=== PATIENT | female | born 1960 | race Caucasian/White ===

== ENCOUNTER 2018-03-27 02:56 | Inpatient (IN) ==
[2018-03-27] MEDS ORDERED: Acetaminophen 325 MG Tablet PO PRN (03:18)
[2018-03-27] MEDS ORDERED: Bisacodyl 10 MG Supp RECTAL PRN (03:18)
--- NOTE | 2018-03-27 03:41 | ED ---
HPI General Chief complaint: Epistaxis Stated complaint: Nose Bleed Time Seen by Provider: 03/27/18 03:01 Source: patient, EMS, RN notes reviewed and old records reviewed Mode of arrival: EMS History of Present Illness HPI narrative: 58yF transferred from [facility] for epistaxis. The patient takes aspirin/ plavix for CAD s/p stents, states that yesterday evening she began to have copious brisk epistaxis which did not resolve with pressure. She went to [place] ED where she had numerous clots evacuated/ suctioned from her anterior nares and posterior oropharynx. Packing was placed (it appears that she has anterior packing in the right nare and anterior/posterior packing in the left nare). ENT was consulted in [place], but the patient was transferred to our institution for IR and ICU availability. The patient currently offers no complaints. Related Data Home Medications Medication Instructions Recorded Confirmed aspirin 81 mg PO DAILY 03/27/18 03/27/18 clopidogrel 75 mg PO DAILY 03/27/18 03/27/18 cyclobenzaprine 10 mg PO HS 03/27/18 03/27/18 gabapentin 1,200 mg PO HS 03/27/18 03/27/18 linaclotide [Linzess] 290 mcg PO DAILY 03/27/18 03/27/18 lisinopril 10 mg PO DAILY 03/27/18 03/27/18 metoprolol tartrate 50 mg PO BID 03/27/18 03/27/18 sertraline 200 mg PO DAILY 03/27/18 03/27/18 Allergies Allergy/AdvReac Type Severity Reaction Status Date / Time codeine Allergy Unknown Rash Unverified 03/27/18 03:00 Sulfa (Sulfonamide Allergy Unknown Rash Unverified 03/27/18 03:00 Antibiotics) sulfamethoxazole Allergy Unknown Rash Verified 03/27/18 03:00 [From Bactrim] trimethoprim [From Bactrim] Allergy Unknown Rash Verified 03/27/18 03:00 statins Allergy Unknown Rash Uncoded 03/27/18 03:00 Review of Systems ROS: all other systems reviewed are negative [facility] Medical History Medical History Breast cancer (Acute) Constipation (Acute) Endometriosis (Acute) Fibromyalgia (Acute) GERD (gastroesophageal reflux disease) (Acute) H/O colon cancer, stage I (Acute) HTN (hypertension) (Acute) Surgical History Surgical History H/O left mastectomy (Acute) H/O mastectomy (Acute) Social History Social History Substance History: Active Abuse Second Hand Smoke Exposure: Yes Smoking Status: Current every day smoker Tobacco Type: Cigarettes How Often Do You Have a Drink Containing Alcohol: Never Recent Travel in [facility] within the Last 8 Weeks: No Recent Out of Country Travel within the Last 8 Weeks: No Substance Abuse Detail Marijuana: Substance Use Status: Early Remission Reason for Use: Feels Good Immunization History Tetanus Immunization: Unsure Exam Const General: healthy appearing and no acute distress HENMT Other: Bilateral nasal packing in place- right appears to have anterior packing only, left nare has dual-lumen pack present which is partially removed from nare with both balloons inflated (? A-P pack placed anteriorly) Airway patent Resp Auscultation: clear to auscultation bilaterally Other: Speaking in complete sentences, no respiratory distress Cardio Rate: regular rate Rhythm: regular rhythm GI Palpation: soft and nontender Skin General: no pallor Neuro General: alert, awake and no focal motor deficits Course Initial Documented Vital Signs Temperature 97.9 F 03/27/18 03:00 Pulse Rate 90 03/27/18 03:00 Respiratory Rate 16 03/27/18 03:00 Blood Pressure 165/98 H 03/27/18 03:00 Pulse Oximetry 97 03/27/18 03:00 Last Documented Vital Signs Temperature 97.9 F 03/27/18 03:00 Pulse Rate 90 03/27/18 03:00 Respiratory Rate 16 03/27/18 03:00 Blood Pressure 165/98 H 03/27/18 03:00 Pulse Oximetry 97 03/27/18 03:00 Medical Decision Making [facility] Narrative Medical decision making narrative: Assessment: 58yF presenting with epistaxis Plan: Patient accepted prior to transfer by Dr. Lynch, case discussed with her. Patient appropriate for med-surg level of care. Patient already had labs performed prior to transfer, Hg 11.5, AM labs Medical Screen Exam Complete: Yes Emergency Medical Condition: Yes Differential Diagnosis Differential Diagnosis: Differential diagnosis includes, but is not limited to: anterior/ posterior epistaxis, medication induced platelet dysfunction Discharge Plan Discharge Disposition Patient Disposition: ED Admit(ED Internal Use Only) Discharge Condition Condition: Good Discharge Details Diagnosis: Severe epistaxis, Platelet dysfunction due to drugs Physicians Team ED Provider: Mary Lou Bernstein Primary Care Provider: Primary Care Isabel Hartley Attending Provider: Judy Lynch Status ED Status: Admitted Patient
--- NOTE | 2018-03-27 03:58 | P.HPIM ---
History of Present Illness Primary Care Physician: No Primary Care Physician History of Present Illness: This is a 58-year-old female with a PMH of HTN, CAD s/p Stent and Tobacco Abuse who was transferred from [facility] for eval w/ Dr. Yarbrough for epistaxis. Pt states she has h/o CAD w/ stent placement in August 2017, has been on ASA and Plavix since that time. Today developed acute onset of bilateral epistaxis, EMS called and symptoms subsided, however had recurrent epistaxis several hours later and presented to [facility]. S/p nasal packing bilaterally w/ posterior clot. Dr. Yarbrough consulted and accepted pt in transfer. Records/labs from reviewed, Hgb 11.1, Platelets 186, INR 1.1. BP 165/98, HR 90, O2 sat 97% on RA , Afebrile. - Diagnosis (1) Epistaxis (2) HTN (hypertension) (3) Tobacco abuse Inpatient Certification: I certify that the inpatient services were ordered in accordance with Medicare regulations governing the order. This includes certification that hospital inpatient services are reasonable and necessary and in the case of services not specified as inpatient-only under 42 CFR 419.22(n), that they are appropriately provided as inpatient services in accordance to with the 2-midnight benchmark under 43 CFR 412.3(e) Estimated Total Length of Stay (Days): 2 Plans for Post Hospital Care: Not yet determined Review of Systems PAST FAMILY HISTORY: Reviewed. No h/o DM or CAD All other systems reviewed negative except as stated in HPI PMFSH - History History Provided By: Patient - Medical History Medical History: Medical History (Last Reviewed 03/27/18 @ 03:48 by Mary Lou Bernstein DO) Breast cancer Constipation Endometriosis Fibromyalgia GERD (gastroesophageal reflux disease) H/O colon cancer, stage I HTN (hypertension) - Surgical History Surgical History: Surgical History (Last Reviewed 03/27/18 @ 03:48 by Mary Lou Bernstein DO) H/O left mastectomy H/O mastectomy - Tobacco History Second Hand Smoke Exposure: Yes Tobacco Use In Past 30 Days: Yes Smoking Status: Current every day smoker Tobacco Type: Cigarettes - Alcohol History How Often Do You Have a Drink Containing Alcohol: Never - Substance Use History Substance History: Active Abuse - Substance Use Type Marijuana Status: Early Remission Reason for Use: Feels Good - Travel History Recent Travel in the [facility] [place] Within the Last 8 Weeks: No Recent Travel Out of the Country Within the Last 8 Weeks: No - Immunization History Tetanus Immunization: Unsure Medications and Allergies Active Medications: Active Medications Acetaminophen (Tylenol) 650 mg PO Q4H PRN PRN Reason: Temp > 100.4 Al Hydroxide/Mg Hydroxide (Milk Of Magnesia Liq) 30 ml PO Q12H PRN PRN Reason: Mild Constipation Bisacodyl (Dulcolax Supp) 10 mg RECTAL DAILY PRN PRN Reason: SEVERE CONSITIPATION Lactulose (Lactulose Liq) 30 ml PO DAILY PRN PRN Reason: SEVERE CONSITIPATION Ondansetron HCl (Zofran Inj) 4 mg IV.PUSH Q6H PRN PRN Reason: NAUSEA OR VOMITING Senna/Docusate Sodium (Davida-Colace) 1 tab PO BID [facility] Sennosides (Senokot) 17.2 mg PO Q12H PRN PRN Reason: Moderate Constipation Sodium Chloride (Ns Flush) 2 ml IV.FLUSH PRN PRN PRN Reason: FLUSH AFTER USING IV ACCESS Sodium Chloride (Ns Flush) 2 ml IV.FLUSH BID [facility] Allergies Allergy/AdvReac Type Severity Reaction Status Date / Time codeine Allergy Unknown Rash Unverified 03/27/18 03:00 Sulfa (Sulfonamide Allergy Unknown Rash Unverified 03/27/18 03:00 Antibiotics) sulfamethoxazole Allergy Unknown Rash Verified 03/27/18 03:00 [From Bactrim] trimethoprim [From Bactrim] Allergy Unknown Rash Verified 03/27/18 03:00 statins Allergy Unknown Rash Uncoded 03/27/18 03:00 Home Medications Medication Instructions Recorded Confirmed Type aspirin 81 mg PO DAILY 03/27/18 03/27/18 History clopidogrel 75 mg PO DAILY 03/27/18 03/27/18 History cyclobenzaprine 10 mg PO HS 03/27/18 03/27/18 History gabapentin 1,200 mg PO HS 03/27/18 03/27/18 History linaclotide [Linzess] 290 mcg PO DAILY 03/27/18 03/27/18 History lisinopril 10 mg PO DAILY 03/27/18 03/27/18 History metoprolol tartrate 50 mg PO BID 03/27/18 03/27/18 History sertraline 200 mg PO DAILY 03/27/18 03/27/18 History Exam Vital signs: Vital Signs 03/27/18 03:00 Temperature 97.9 F Pulse Rate 90 Respiratory Rate 16 Blood Pressure 165/98 H Pulse Oximetry 97 Intake & Output 03/26/18 03/26/18 03/27/18 06:59 18:59 06:59 Weight 61.235 kg Narrative: PE: GENERAL: Pleasant middle-aged white female in no acute distress, uncomfortable from nasal packing. SKIN: Focused skin assessment warm and dry. HEENT: PERRLA, EOMI. No scleral icterus or conjunctival pallor. No lid lag or facial droop. Bilateral nasal packing CARDIOVASCULAR: Regular rate and rhythm. No obvious murmurs to auscultation. No chest tenderness to palpation. RESPIRATORY: No obvious rhonchi or wheezing. Clear to auscultation. Breath sounds equal bilaterally. GASTROINTESTINAL: Abdomen soft, non-tender, nondistended. BS normal. MUSCULOSKELETAL: Extremities without clubbing, cyanosis, or edema. No obvious deformities. NEUROLOGICAL: Awake, alert and oriented x4. No focal neurologic deficits. Moving both upper and lower extremities spontaneously. PSYCHIATRIC: Appropriate mood and affect. Insight and judgment normal. Caprini VTE Risk Assessment Caprini VTE Risk Assessment: No/Low Risk (score <= 1) VTE Pharmacological Exception Reason: Active bleeding Caprini Risk Assessment Model: Point Value = 1 Point Value = 2 Point Value = 3 Point Value = 5 Age 41-60 Minor surgery BMI > 25 kg/m2 Swollen legs Varicose veins or History of unexplained or recurrent spontaneous Oral contraceptives or hormone replacement Sepsis (< 1 month) Serious lung disease, including pneumonia (< 1 month) Abnormal pulmonary function Acute myocardial infarction Congestive heart failure (< 1 month) History of inflammatory bowel disease Medical patient at bed rest Age 61-74 Arthroscopic surgery Major open surgery (> 45 min) Laparoscopic surgery (> 45 min) Malignancy Confined to bed (> 72 hours) Immobilizing plaster cast Central venous access Age >= 75 History of VTE Family history of VTE Factor V Leiden Prothrombin [id number] Lupus anticoagulant Anticardiolipin antibodies Elevated serum homocysteine Heparin-induced thrombocytopenia Other congenital or acquired thrombophilia Stroke (< 1 month) Elective arthroplasty Hip, pelvis, or leg fracture Acute spinal cord injury (< 1 month) Prophylaxis Regimen: Total Risk Factor Score Risk Level Prophylaxis Regimen 0-1 Low Early ambulation 2 Moderate Order ONE of the following: *Sequential Compression Device (SCD) *Heparin 5000 units SQ BID 3-4 Higher Order ONE of the following medications: *Heparin 5000 units SQ TID *Enoxaparin/Lovenox 40 mg SQ daily (WT < 150 kg, CrCl > 30 mL/min) *Enoxaparin/Lovenox 30 mg SQ daily (WT < 150 kg, CrCl > 10-29 mL/min) *Enoxaparin/Lovenox 30 mg SQ BID (WT < 150 kg, CrCl > 30 mL/min) AND/OR *Sequential Compression Device (SCD) 5 or more Highest Order ONE of the following medications: *Heparin 5000 units SQ TID (Preferred with Epidurals) *Enoxaparin/Lovenox 40 mg SQ daily (WT < 150 kg, CrCl > 30 mL/min) *Enoxaparin/Lovenox 30 mg SQ daily (WT < 150 kg, CrCl > 10-29 mL/min) *Enoxaparin/Lovenox 30 mg SQ BID (WT < 150 kg, CrCl > 30 mL/min) AND *Sequential Compression Device (SCD) Assessment and Plan - Assessment (1) Epistaxis Code(s): R04.0 - Epistaxis Status: Acute (2) HTN (hypertension) Code(s): I10 - Essential (primary) hypertension Status: Acute (3) Tobacco abuse Code(s): Z72.0 - Tobacco use Status: Acute - Plan A/P: 1. Epistaxis: Tx from [facility] for acute onset of epistaxis w/ recurrence, on ASA/Plavix for h/o stent placement, will hold ASA/Plavix. Labs/records from reviewed, Hgb 11.1, Platelets 186, INR 1.1. Dr. Yarbrough accepted pt in transfer, will await eval for further recommendations. Repeat Hgb/Hct this am. Morphine prn. 2. HTN: Uncontrolled. BP 160-170's, states on Metoprolol 50mg bid, recently discontinued Lisinopril due to persistent cough. Monitor BP, antihypertensives as needed 3. Tobacco Abuse: Pt counselled, NicoDerm/Ativan as needed. 4. DVT Prophylaxis: Pharmacologic contraindication due to active bleeding 5. Social work for d/c planning as needed. 6. Case discussed w/ ER physician at length, labs/records/imaging reviewed by me.
[2018-03-27] MEDS: Morphine Inj 4 MG/ML Vial IV.PUSH PRN ×5 (04:08→23:04)
[2018-03-27] MEDS: Metoprolol Tartrate 50 MG Tablet PO SCH ×2 (10:23→20:09)
[2018-03-27] MEDS: Lisinopril 10 MG Tablet PO SCH (10:23)
[2018-03-27] MEDS: Senna/Docusate Sodium 8.6/50 MG Tablet PO SCH ×2 (10:24→20:09)
[2018-03-27 11:21] LABS: Baso % (Auto) 0.4 % (0.0-2.0); Eos # (Auto) 0.1 th/mm3 (0.0-0.4); Eos % (Auto) 1.3 % (0.0-4.0); Hematocrit 35.6 % (35.0-46.0); Lymph # (Auto) 1.4 th/mm3 (1.0-4.8); Lymph % (Auto) 22.9 % (9.0-44.0); Mean Corpuscular HGB Conc 33.9 % (32.0-36.0); Mean Corpuscular Hemoglobin 31.3 pg (27.0-34.0); Mean Corpuscular Volume 92.3 fL (80.0-100.0); Mean Platelet Volume 7.4 fL (7.0-11.0); Mono # (Auto) 0.4 th/mm3 (0.0-0.9); Neut # (Auto) 4.3 th/mm3 (1.8-7.7); Neut % (Auto) 69.4 % (16.0-70.0); Platelet Count 169 th/mm3 (150-450); Red Blood Count 3.85 mil/mm3 (4.00-5.30); Red Cell Distribution Width 14.4 % (11.6-17.2); White Blood Count 6.2 th/mm3 (4.0-11.0)
[2018-03-27 11:46] LABS: Alanine Aminotransferase 21 U/L (10-53); Albumin 3.7 g/dL (3.4-5.0); Anion Gap 5 meq/L (5-15); Aspartate Aminotransferase 19 U/L (15-37); Blood Urea Nitrogen 15 mg/dL (7-18); Calcium 8.6 mg/dL (8.5-10.1); Carbon Dioxide 28.4 meq/L (21.0-32.0); Chloride 107 meq/L (98-107); Glomerular Filtration Rate 88 mL/min (>89); Glucose,Random 96 mg/dL (74-106); Potassium 3.6 meq/L (3.5-5.1); Sodium 140 meq/L (136-145)
[2018-03-27 11:49] LABS: Alkaline Phosphatase 95 U/L (45-117); Total Protein 7.1 g/dL (6.4-8.2)
--- NOTE | 2018-03-27 12:24 | P.PNADD ---
Addendum to Inpatient Note Reason for Addendum: Additional Documentation Additional information: 58 years old transferred from [place] for ENT evalaution- bialteral epistaxis with history of CAD s/p stent on Plavix + ASA since 08/2017 from [place], [place]- here visiting awake and alert brisk bilateral epistaxis out of both nostrils despite nasal rhinorockets now also vomiting clots of blood- likely swallowed blood having pain both nostrils CBC this am good d/w with ENT- Dr. Yarbrough recommends - IR consult to evaluate for embolization - consulted and s/w Dr. Mack- Interventional Radiology - stat CBC , type and cross standby 2 units consult Hematology- d/w Wiliam Rhodes - give 1 pack platelet now - Amicar 1 gm IV x 1 Hypertension- uncontrolled History of CAD s/p stent 08/2017 - continue home meds- JC 10 mg daily, LOpressor 50 mg po bid - add clonidine 0.1 mg po q 6 prn transfer to [facility] for close monitoring
[2018-03-27 12:38] LABS: Hemoglobin 12.6 gm/dL (11.6-15.3); Mean Corpuscular Hemoglobin 31.4 pg (27.0-34.0); Mean Corpuscular Volume 92.4 fL (80.0-100.0); Mean Platelet Volume 7.1 fL (7.0-11.0); Platelet Count 221 th/mm3 (150-450); Red Cell Distribution Width 14.4 % (11.6-17.2); White Blood Count 8.8 th/mm3 (4.0-11.0)
[2018-03-27] MEDS ORDERED: AMINOCAPROIC ACID IV.SIG ONE ×2 (13:45→15:00)
[2018-03-27] MEDS ORDERED: SODIUM CHLOR 0.9% IV.SIG ONE ×2 (13:45→15:00)
--- NOTE | 2018-03-27 19:01 | MB ---
cc: Conrado Swain MD DATE: 03/27/2018 ATTENDING PHYSICIAN: Primitivo Calderon MD REASON FOR CONSULTATION: Hematology consult originally for patient with acute epistaxis while on antiplatelet agents. HISTORY OF PRESENT ILLNESS: The patient is a 58-year-old female transferred from [facility] in [place] to see ENT for acute epistaxis. The patient states that she had no bleeding complication in the past, but yesterday morning she developed acute epistaxis which lasted about three hours and it stopped. However, it recurred and she was bleeding profusely. She went to the emergency room and had a nasal packing, but still bleeding. She was then transferred here to see ENT. The patient had coronary artery disease and had coronary stent placed in August. She was started on aspirin and Plavix. Hematology was consulted for management of the bleeding. The patient had a prior surgery without any bleeding complication. She also denies any family history of bleeding disorder. She has no chest pain or palpitations. She denies any shortness of breath or cough. She has no nausea or vomiting. She denies abdominal pain. She has no melena or hematochezia. PAST MEDICAL HISTORY: 1. Breast cancer about 30 years ago, had a lumpectomy, followed by radiation. She had recurrence 5 years later and had a left mastectomy. 2. Colon cancer, status post resection around 8 years ago, reportedly stage I. 3. Hypertension. 4. Coronary artery disease. 5. Tobacco dependence. 6. Endometriosis. 7. Fibromyalgia. 8. Gastroesophageal reflux disease. PAST SURGICAL HISTORY: 1. Left breast lumpectomy, followed by mastectomy. 2. Coronary stent placement. FAMILY HISTORY: Two brothers and 2 sisters are all healthy. She has a son and a daughter. No one with a bleeding disorder. SOCIAL HISTORY: Positive tobacco use, but cut down to about 2 cigarettes a day. Denies alcohol use. ALLERGIES: MULTIPLE DRUG ALLERGIES documented in the chart were reviewed. MEDICATIONS: 1. Prinivil. 2. Metoprolol. 3. Davida-Colace. REVIEW OF SYSTEMS: CONSTITUTIONAL: Negative. EYES: Negative. ENT: As above. CARDIOVASCULAR: As above. RESPIRATORY: As above. GASTROINTESTINAL: Negative. GENITOURINARY: Negative. MUSCULOSKELETAL: Negative. HEMATOLOGY: As above. ENDOCRINE: Negative. DERMATOLOGY: Negative. PSYCHIATRIC: Negative. NEUROLOGIC: Negative. PHYSICAL EXAMINATION: VITAL SIGNS: Temperature 98.2, blood pressure 143/105. GENERAL: She is alert, oriented x 3. A little anxious. HEENT: Atraumatic, normocephalic. Pupils are equal, round, reactive to light. Oropharynx dry mucosa. Dried blood noted and nostril packing noted. No thyromegaly. CARDIOVASCULAR: Regular S1, S2. No murmur. LUNGS: Clear to auscultation bilaterally. ABDOMEN: Soft, nontender, no palpable spleen. EXTREMITIES: No cyanosis, clubbing, or edema. SKIN: No rash or petechiae. NEUROLOGIC: Nonfocal. LABORATORY DATA: WBC 8.8, hemoglobin 12.6, platelet count 221, creatinine 0.68. Liver transaminase within normal limits. ASSESSMENT: 1. Acute epistaxis while on antiplatelet agent. The patient was started on Plavix and aspirin in August after coronary stent placement. She developed acute epistaxis yesterday morning, it lasted 3 hours and stopped, however, it recurred again and would not stop. She went to the emergency room and had nasal packing, but is still bleeding. She was transferred to see ENT. Her platelet count is normal at 227. However, platelets are slightly nonfunctioning due to Plavix and aspirin. Recommend transfusing her with 1 unit of platelets. Also, we will give her 1 dose of Amicar. She is was later evaluated by Dr. Yarbrough and a dissolvable nasal packing was done and the patient is more comfortable. Dr. Yarbrough has also consulted Interventional Radiology for embolization. I am going to check a coagulation study to see if there is any other abnormality. We will continue to monitor her CBC. I will not give her any more Amicar, due to coronary artery stent placement recently. 2. Coronary artery disease, status post coronary stent placement in August. She was on aspirin and Plavix, which has now been discontinued. She will likely need to be resumed but we will leave that for the battery tester field to decide 3. History of breast cancer about 30 years ago. She initially had lumpectomy and radiation. She recurred 5 years later and had left mastectomy. 4. History of colon cancer, status post resection about 8 years ago. Reportedly, it was a stage I cancer. 5. Hypertension. 6. Endometriosis. 7. Fibromyalgia. RECOMMENDATIONS: 1. Transfuse 1 unit platelet and give her 1 dose of Amicar. 2. Check coagulation studies. Further management per ENT and patient is awaiting embolization by Interventional Radiology. 3. Cardiology to decide when to restart the antiplatelet agents. 4. Discussed with Dr. Calderon. Thank you, Dr. Calderon, for asking me to see this patient. MD EDDIE Garvey/shaheen , 02:45 PM , 02:58 PM MTDD
--- NOTE | 2018-03-27 19:06 | MB ---
cc: Allan Yarbrough MD DATE: 03/27/2018 CHIEF COMPLAINT: Epistaxis. HISTORY OF PRESENT ILLNESS: The patient is a pleasant 58-year-old female transferred from [place] with bilateral epistaxis despite bilateral nasal balloons. She has a history of CAD, status post stent, on Plavix and aspirin. She has been having brisk epistaxis from both nares despite Rhino Rockets and also vomiting clots of blood. She noted having severe pain in her nose as well. Interventional radiology will be evaluating the patient as well shortly. PHYSICAL EXAMINATION: The patient is well developed, in mild distress. She does have fresh blood in the posterior oropharynx. Of note, the left nasal Rhino Rocket is only in minimally. She complains of pain with the Rhino Rockets in. ASSESSMENT: Bilateral epistaxis with blood thinning from Plavix and aspirin. The left Rhino Rocket was deflated and attempted to be advanced in a more posterior direction instead of superior. However, this was met with resistance and I was unable to advance it any further than the minimal amount that it was in at that time. Thus, this was removed and on scoping, there was friable tissue throughout the left nasal cavity. A Stammberger NasoPore dissolvable dressing was coated throughout the entire left nasal cavity and nasopharynx. The patient notes that this felt much less pressure to her than prior. Although the patient is currently somewhat stable, I recommend interventional radiology to still evaluate for embolization as she has very friable mucosa and has had significant blood loss and will likely continue to ooze as per her very friable tissue. The nasal dissolvable dressing should dissolve within 5 days. I recommend withholding any nasal saline spray at this time to minimize any degradation of the dissolvable dressing. However, the patient starting tomorrow may be given nasal mupirocin ointment to the left nasal cavity twice a day. I recommend the patient's right nasal balloon stay in for a total of 5 days as per the amount of oozing that she has had and amount of bleeding she has had. This may be removed by the home team when appropriate by simple deflation and extraction, and after the next 5 days, I recommend the patient having ointment in the bilateral nares twice a day for the next 6 weeks at least. Allan Yarbrough MD PCC/jl , 02:19 PM , 02:26 PM
--- NOTE | 2018-03-27 20:37 | MB ---
cc: Allan Yarbrough MD DATE: 03/27/2018 ADDENDUM: Note, I recommend the patient be on prophylactic antibiotics for the next week or so while she has nasal packing in place. This could be something as simple as Ancef 1 gram 3 times a day or oral Keflex when patient is able to tolerate it, if there are no adverse reactions to this. Allan Suarez. MD Zenon PCC/lc/pc , 02:25 PM , 02:29 PM
[2018-03-28] MEDS: Lisinopril 10 MG Tablet PO SCH (08:49)
[2018-03-28] MEDS: Metoprolol Tartrate 50 MG Tablet PO SCH ×2 (08:49→21:20)
[2018-03-28] MEDS: Senna/Docusate Sodium 8.6/50 MG Tablet PO SCH ×2 (08:49→21:21)
[2018-03-28] MEDS: ceFAZolin 1 GM Premix Inj 1 GM/50 ML PIGGYBACK IV.SIG SCH ×2 (08:50→15:53)
[2018-03-28 09:00] LABS: Hematocrit 32.7 % (35.0-46.0); Hemoglobin 11.1 gm/dL (11.6-15.3); Mean Corpuscular HGB Conc 33.9 % (32.0-36.0); Mean Corpuscular Hemoglobin 31.3 pg (27.0-34.0); Mean Corpuscular Volume 92.2 fL (80.0-100.0); Mean Platelet Volume 7.7 fL (7.0-11.0); Platelet Count 220 th/mm3 (150-450); Red Blood Count 3.55 mil/mm3 (4.00-5.30); Red Cell Distribution Width 14.5 % (11.6-17.2); White Blood Count 7.3 th/mm3 (4.0-11.0)
--- NOTE | 2018-03-28 09:00 | P.PN ---
Subjective Interval history: awake and alert complains of some nausea- pain and discomfort both nostrils still bleeding- suctioning through the mouth - bright red blood, some clots BP better Physical Exam Vital signs: Vital Signs 03/27/18 12:00 03/27/18 12:30 03/27/18 20:00 Temperature 98.6 F Pulse Rate 86 81 Respiratory Rate 20 18 Blood Pressure 157/95 H 143/105 H 157/86 H Pulse Oximetry 98 96 03/27/18 20:13 03/27/18 22:11 03/28/18 00:00 Temperature 98.4 F 98.5 F 98.7 F Pulse Rate 98 H 80 95 H Respiratory Rate 12 22 Blood Pressure 170/85 H 164/86 H 165/99 H Pulse Oximetry 98 97 99 03/28/18 04:00 Temperature 97.8 F Pulse Rate 89 Respiratory Rate 13 Blood Pressure 153/81 H Pulse Oximetry Intake & Output 03/27/18 03/28/18 03/28/18 18:59 06:59 18:59 Intake Total 0 / 0 499 / 499 Output Total 650 / 650 Balance 0 / 0 -151 / -151 Weight 59 kg Intake: IV 250 / 250 Amicar Inj 1,000 MG In NS Inj 250 / 250 246 ML @ 250 mls/hr IV.SIG ONCE ONE Rx#:[id number] Oral 0 / 0 Intake (Blood Product) Amt 249 / 249 Plt Pheresis A Leukoreduced 249 / 249 Unit [id number] Output: Urine 650 / 650 Other: # Voids 2 2 # Bowel Movements 0 Narrative: awake and alert anciteric bialteral rhinorockets in place neck supple lungs- no rales regular rhythm abdomen soft extremities no edema neuro exam- non focal Results - Labs CBC & Chem 7: 03/28/18 07:49 03/27/18 10:48 Laboratory Results - last 24 hr 03/27/18 03/27/18 03/27/18 10:48 10:48 12:30 WBC 6.2 8.8 RBC 3.85 L 4.00 Hgb 12.0 12.6 Hct 35.6 37.0 MCV 92.3 92.4 MCH 31.3 31.4 MCHC 33.9 34.0 RDW 14.4 14.4 Plt Count 169 221 D MPV 7.4 7.1 Neut % (Auto) 69.4 Lymph % (Auto) 22.9 [place] % (Auto) 6.0 Eos % (Auto) 1.3 Baso % (Auto) 0.4 Neut # (Auto) 4.3 Lymph # (Auto) 1.4 [place] # (Auto) 0.4 Eos # (Auto) 0.1 Baso # (Auto) 0.0 WBC Differential . Differential Comment Auto diff final Sodium 140 Potassium 3.6 Chloride 107 Carbon Dioxide 28.4 Anion Gap 5 BUN 15 Creatinine 0.68 Estimated GFR 88 L Random Glucose 96 Calcium 8.6 Total Bilirubin 0.4 AST 19 ALT 21 Alkaline Phosphatase 95 Total Protein 7.1 Albumin 3.7 Blood Type Antibody Screen MTS Gel Crossmatch Bld Prod Order Comment 03/27/18 03/27/18 03/27/18 13:01 13:03 13:19 WBC RBC Hgb Hct MCV MCH MCHC RDW Plt Count MPV Neut % (Auto) Lymph % (Auto) [place] % (Auto) Eos % (Auto) Baso % (Auto) Neut # (Auto) Lymph # (Auto) [place] # (Auto) Eos # (Auto) Baso # (Auto) WBC Differential Differential Comment Sodium Potassium Chloride Carbon Dioxide Anion Gap BUN Creatinine Estimated GFR Random Glucose Calcium Total Bilirubin AST ALT Alkaline Phosphatase Total Protein Albumin Blood Type O Positive Antibody Screen Negative MTS Gel Crossmatch See Detail See Detail Bld Prod Order Comment Assessment and Plan - Assessment (1) Epistaxis Code(s): R04.0 - Epistaxis Status: Acute (2) HTN (hypertension) Code(s): I10 - Essential (primary) hypertension Status: Acute (3) Tobacco abuse Code(s): Z72.0 - Tobacco use Status: Acute - Plan 58 years old transferred from [place] with CAD s/p stent 08/2017 Persistent Bilateral epistaxis S/P rhinorhockets in place Tx from [facility] for acute onset of epistaxis w/ recurrence, on ASA/Plavix for h/o stent placement - S/P 1 pack platelet and IV amicar 03/27 - IR consulted for embolization- s/w Dr. Villeda this am- plan for embolization today - IV dilaudid prn for pain - Zofran prn for nausea - ff CBC - ENT ff - started on Ancef 1 gm IV q 8 -ASA/Plavix DC - Hematology/ENT ff along closely with us - start VF - D5NS 50 cc/hr - while NPO Hypertension- bettter readings History fo CAD s/p stent 08/2017 - continue home meds- JC 10 mg daily, Lopressor 50 mg po bid - clonidine 0.1 mg po q 6 prn - will need to eventually get Cardiology involved to decide when to safely restart Plavix - she will have family bring in her card- of what type of stent she has bilateral TEDs/SCDs for DVT prophylaxis
[2018-03-28 09:10] LABS: Activated Partial Thrombo Time 24.2 sec (23.4-31.7); Prothrombin Time 10.2 sec (9.8-11.6)
[2018-03-28] MEDS ORDERED: fentaNYL Citrate Inj 250 MCG/5 ML Ampul ONE (09:22)
[2018-03-28 09:32] LABS: Anion Gap 5 meq/L (5-15); Blood Urea Nitrogen 13 mg/dL (7-18); Calcium 9.7 mg/dL (8.5-10.1); Carbon Dioxide 27.4 meq/L (21.0-32.0); Chloride 104 meq/L (98-107); Glomerular Filtration Rate Greater Than 89 mL/min (>89); Glucose,Random 105 mg/dL (74-106); Potassium 3.9 meq/L (3.5-5.1); Sodium 136 meq/L (136-145)
[2018-03-28] MEDS ORDERED: Lidocaine PF 1% Inj 30 ML Vial ONE (10:21)
[2018-03-28] MEDS ORDERED: Heparin 10,000 UNITS/10 ML Vial (for IV use) ONE (10:55)
[2018-03-28] MEDS ORDERED: Gelatin Size 100 Topical Foam OTHER ONE (11:00)
--- NOTE | 2018-03-28 12:00 | P.PNONC ---
Subjective Interval history: Patient just returned to room from left maxillary embolization. Her only complaint at this time is that her back hurts a little bit and she is asking when she will be allowed to get up. Objective Vital Signs/Intake & Output: Vital Signs 03/27/18 12:00 03/27/18 12:30 03/27/18 20:00 Temperature 98.6 F Pulse Rate 86 81 Respiratory Rate 20 18 Blood Pressure 157/95 H 143/105 H 157/86 H Pulse Oximetry 98 96 03/27/18 20:13 03/27/18 22:11 03/28/18 00:00 Temperature 98.4 F 98.5 F 98.7 F Pulse Rate 98 H 80 95 H Respiratory Rate 12 22 Blood Pressure 170/85 H 164/86 H 165/99 H Pulse Oximetry 98 97 99 03/28/18 04:00 Temperature 97.8 F Pulse Rate 89 Respiratory Rate 13 Blood Pressure 153/81 H Pulse Oximetry Intake & Output 03/27/18 03/28/18 03/28/18 18:59 06:59 18:59 Intake Total 0 / 0 499 / 499 50 / 50 Output Total 650 / 650 Balance 0 / 0 -151 / -151 50 / 50 Weight 59 kg Intake: IV 250 / 250 50 / 50 Amicar Inj 1,000 MG In NS Inj 250 / 250 246 ML @ 250 mls/hr IV.SIG ONCE ONE Rx#:[id number] Ancef 1 GM Premix Inj 1 gm In 50 / 50 50 ml @ 100 mls/hr IV.SIG Q8H BORIS Rx#:[id number] Oral 0 / 0 Intake (Blood Product) Amt 249 / 249 Plt Pheresis A Leukoreduced 249 / 249 Unit [id number] Output: Urine 650 / 650 Other: # Voids 2 2 # Bowel Movements 0 Result Diagrams: 03/28/18 07:49 03/28/18 07:49 Laboratory Results: Laboratory Results - last 24 hr 03/27/18 03/27/18 03/27/18 12:30 13:01 13:03 WBC 8.8 RBC 4.00 Hgb 12.6 Hct 37.0 MCV 92.4 MCH 31.4 MCHC 34.0 RDW 14.4 Plt Count 221 D MPV 7.1 PT INR APTT Fibrinogen Sodium Potassium Chloride Carbon Dioxide Anion Gap BUN Creatinine Estimated GFR Random Glucose Calcium Blood Type O Positive Antibody Screen Negative MTS Gel Crossmatch See Detail See Detail Bld Prod Order Comment 03/27/18 03/28/18 03/28/18 13:19 07:49 07:49 WBC 7.3 RBC 3.55 L Hgb 11.1 L Hct 32.7 L MCV 92.2 MCH 31.3 MCHC 33.9 RDW 14.5 Plt Count 220 MPV 7.7 PT INR APTT Fibrinogen 455 H Sodium Potassium Chloride Carbon Dioxide Anion Gap BUN Creatinine Estimated GFR Random Glucose Calcium Blood Type Antibody Screen MTS Gel Crossmatch Bld Prod Order Comment 03/28/18 03/28/18 07:49 07:49 WBC RBC Hgb Hct MCV MCH MCHC RDW Plt Count MPV PT 10.2 INR 1.0 APTT 24.2 Fibrinogen Sodium 136 Potassium 3.9 Chloride 104 Carbon Dioxide 27.4 Anion Gap 5 BUN 13 Creatinine 0.67 Estimated GFR Greater than 89 Random Glucose 105 Calcium 9.7 D Blood Type Antibody Screen MTS Gel Crossmatch Bld Prod Order Comment Culture Results: Microbiology 03/27/18 13:01 Aerobic Blood Culture - Preliminary Blood - Peripheral No growth in 1 day Anaerobic Blood Culture - Preliminary No growth in 1 day 03/27/18 13:06 Aerobic Blood Culture - Preliminary Blood - Peripheral No growth in 1 day Anaerobic Blood Culture - Preliminary No growth in 1 day Medications: Active Medications Generic Name Dose Route Start Last Admin Trade Name Freq PRN Reason Stop Dose Admin Clonidine HCl 0.1 mg 03/27/18 16:33 03/28/18 06:14 Catapres PO 0.1 mg Q6H PRN Administration SYS BP GREATER THAN 150 MMHG Cefazolin Sodium/Dextrose 1 gm in 50 mls @ 100 mls/hr 03/28/18 08:00 09:24 Ancef 1 Gm Premix Inj IV.SIG Infused Q8H BORIS Infusion Lisinopril 10 mg 03/27/18 09:00 03/28/18 08:49 Prinivil PO 10 mg DAILY BORIS Administration Metoprolol Tartrate 50 mg 03/27/18 09:00 03/28/18 08:49 Lopressor PO 50 mg BID BORIS Administration Ondansetron HCl 4 mg 03/27/18 03:18 03/28/18 08:50 Zofran Inj IV.PUSH 4 mg Q6H PRN Administration NAUSEA OR VOMITING Senna/Docusate Sodium 1 tab 03/27/18 09:00 03/28/18 08:49 Davida-Colace PO 1 tab BID BORIS Administration Sodium Chloride 2 ml 03/27/18 09:00 03/28/18 08:49 Ns Flush IV.FLUSH 2 ml BID BORIS Administration Objective Remarks: GENERAL: Well-nourished, well-developed female patient, in no acute distress. SKIN: Warm and dry. HEAD: Normocephalic.nasal packing in place. EYES: No scleral icterus. No injection or drainage. NECK: Supple, trachea midline. CARDIOVASCULAR: Regular rate and rhythm without murmurs. RESPIRATORY: Breath sounds equal bilaterally. No accessory muscle use. GASTROINTESTINAL: Abdomen soft, non-tender, nondistended. EXTREMITIES: No cyanosis, or edema. 2 x 2 gauze to right groin dry/intact. MUSCULOSKELETAL: Adequate muscle tone. NEUROLOGICAL: No obvious focal deficit. Awake, alert, and oriented x3. PSYCHIATRIC: Appropriate mood and affect; insight and judgment normal. Assessment/Plan - Plan Ms. Huff is a pleasant 58-year-old female patient with a history of coronary stent placement in August 2017, she was on aspirin and Plavix when she developed epistaxis. Hematology was consulted for acute epistaxis while on antiplatelet agents. Recommendations: 1. Epistaxis, patient just returned to the room from left maxillary embolization. 2. Coronary artery disease with stent placement August 2017, will defer to cardiology for timing on when to resume antiplatelet therapy. 3. Status post 1 unit platelets and 1 dose of Amicar, continue to monitor CBC. No transfusions necessary today. - Attending Statement The exam, history, and the medical decision-making described in the above note were completed with the assistance of the mid-level provider. I reviewed and agree with the findings presented. I attest that I had a [id number] encounter with the patient on the same day, and personally performed and documented my assessment and findings in the medical record.Saw pt in am, she still has bleeding and c/o nausea. Hgb trended down slightly. She is going to have embolization at IR later in the morning. I am not going to give her more amicar b/c her CAD and recent stent placement which may increase her risk of clotting the stents especially without antiplatelet agents at this time. Hopefully embolization will stop her bleed.
[2018-03-28] MEDS: Dextrose 5%/NaCl 0.9% Inj 1,000 ML IV.CONT SCH (12:18)
--- NOTE | 2018-03-28 14:15 | IR ---
EXAM DATE: 03/28/2018 11:57 AM EST AGE/SEX: 58 years / Female INDICATIONS: Patient presents with bilateral epistaxis in need of cerebral angiogram with embolizati on. CLINICAL DATA: This is the patient's initial encounter. Patient reports that signs and symptoms have been present for 1 day and indicates a pain score of 0/10. MEDICAL/SURGICAL HISTORY: Hypertension. Gastroesophageal reflux disease. CAD, Tobacco abuse, B reast cancer, Endometriosis, Colon cancer, Fibromyalgia Mastectomy, left. Coronary artery stent. COMPARISON: No prior exams available for comparison. FLUORO TIME (min): 19.8 IMAGE SERIES: 12 ACCESS SITE: Right femoral artery SEDATION TIME (min): 60 CONTRAST (cc): 60cc Visipaque (iodixanol) MEDICATION(S): 2mg midazolam (Versed) IV ; 100mcg fentanyl (Sublimaze) IV ; 3000units Heparin IV 100mcg Nitroglycerine IA ; ; DEVICE(S): Left maxillary artery PVA 355-500microns ; Left maxillary artery Gelfoam 12-7mm ; Right common femora l artery Syvek pad ; ; ; ; . . PROCEDURE : 1. Ultrasound-guided puncture of the access site. 2. Conscious sedation with continuous EKG and 5. Angiography of the left internal maxillary artery 6. Particulate embolization of the left internal maxillary artery The risks, benefits and alternatives to the procedure were explained and verbal and written consent w as obtained. The site was prepped in sterile fashion. Full sterile technique was used, including ca p, mask, sterile gloves and gown and a large sterile sheet. Hand hygiene and 2% chlorhexidine and/or betadine/alcohol prep was utilized per protocol for cutaneous antisepsis. Sterile gel and sterile p robe cover were utilized for ultrasound guidance. The skin and subcutaneous tissues were infiltrated with local anesthetic solution. With ultrasound and fluoroscopic guidance the selected artery was punctured and a vascular sheath was placed. A JB2 catheter was placed in the left common carotid artery and AP and lateral runs were obtained. Th ere is40-50% stenosis involving the origin of the internal carotid artery. The external carotid arter y is widely patent. 4. Angiography of the left external carotid artery demonstrates the anatomy of th e internal maxillary artery. A straight glide catheter was placed into the distal external carotid ar jose and through this a renegade high flow catheter was placed into the internal maxillary artery bey ond the deep temporal branches. Angiography was performed demonstrating no dangerous anastomosis. Emb olization was then performed using 3 50-500 um PVA and Gelfoam to complete stasis. The puncture site was closed with manual pressure and hemostasis was obtained. The patient tolerated the procedure well and there were no complications. Conscious sedation was performed with the prescribed dosages and duration as above in the presence of an independent trained radiology nurse to assist in the monitoring of the patient. EKG and oximetry remained stable throughout the procedure. CONCLUSION: 1. Uncomplicated embolization of the left internal maxillary artery Electronically signed by: Urbano Villeda MD 03/28/2018 2:14 PM EST
[2018-03-29] MEDS: ceFAZolin 1 GM Premix Inj 1 GM/50 ML PIGGYBACK IV.SIG SCH ×4 (00:19→23:25)
[2018-03-29] MEDS: Dextrose 5%/NaCl 0.9% Inj 1,000 ML IV.CONT SCH (04:35)
[2018-03-29] MEDS: Lisinopril 10 MG Tablet PO SCH (08:02)
[2018-03-29] MEDS: Metoprolol Tartrate 50 MG Tablet PO SCH ×2 (08:02→21:00)
[2018-03-29] MEDS: Senna/Docusate Sodium 8.6/50 MG Tablet PO SCH ×2 (08:02→21:00)
--- NOTE | 2018-03-29 10:10 | P.PN ---
Subjective Interval history: Follow-up epistaxis status post left internal maxillary artery embolization. No further bleeding. BP elevated per pt well controlled at home Physical Exam Vital signs: Vital Signs 03/28/18 12:00 03/28/18 16:00 03/28/18 20:00 Temperature 98.8 F 99.1 F 98.5 F Pulse Rate 78 92 H 100 H Respiratory Rate 20 14 18 Blood Pressure 103/65 151/72 H 134/77 Pulse Oximetry 99 97 03/29/18 00:00 03/29/18 04:00 03/29/18 07:59 Temperature 98.5 F 98.8 F 97.7 F Pulse Rate 72 100 H 94 H Respiratory Rate 15 19 15 Blood Pressure 130/63 175/92 H 130/70 Pulse Oximetry 99 98 Intake & Output 03/28/18 03/29/18 03/29/18 18:59 06:59 18:59 Intake Total 100 / 100 1050 / 1050 50 / 50 Output Total 325 / 325 Balance 100 / 100 725 / 725 50 / 50 Weight 57 kg Intake: IV 100 / 100 1050 / 1050 50 / 50 D5W/Normal Saline Inj 1,000 ML 1000 / 1000 @ 50 mls/hr IV.CONT .Q20H BORIS Rx#:[id number] Ancef 1 GM Premix Inj 1 gm In 100 / 100 50 / 50 50 / 50 50 ml @ 100 mls/hr IV.SIG Q8H BORIS Rx#:[id number] Output: Urine 325 / 325 Other: # Voids 4 # Bowel Movements 0 0 Narrative: awake and alert anicteric nasal balloon on the right nostril, packing on the left neck supple lungs- no rales regular rhythm abdomen soft extremities no edema neuro exam- non focal Results - Labs CBC & Chem 7: 03/28/18 07:49 03/28/18 07:49 Microbiology 03/27/18 13:01 Blood - Peripheral Aerobic Blood Culture - Preliminary No growth in 1 day 03/27/18 13:01 Blood - Peripheral Anaerobic Blood Culture - Preliminary No growth in 1 day 03/27/18 13:06 Blood - Peripheral Aerobic Blood Culture - Preliminary No growth in 1 day 03/27/18 13:06 Blood - Peripheral Anaerobic Blood Culture - Preliminary No growth in 1 day - Imaging ITS Impressions Cerebral Angiography 03/28/18 00:00 CONCLUSION: 1. Uncomplicated embolization of the left internal maxillary artery - Procedures right nasal balloon Left internal maxillary artery embolization Assessment and Plan - Assessment (1) Epistaxis Code(s): R04.0 - Epistaxis Status: Acute (2) HTN (hypertension) Code(s): I10 - Essential (primary) hypertension Status: Acute (3) Tobacco abuse Code(s): Z72.0 - Tobacco use Status: Acute - Plan 58 years old transferred from [place] with CAD s/p stent 08/2017 Persistent Bilateral epistaxis S/P rhino rhocket Tx from [facility] for acute onset of epistaxis w/ recurrence, on ASA/Plavix for h/o stent placement - S/P 1 pack platelet and IV amicar 03/27 - Status post left internal maxillary artery embolization - IV dilaudid prn for pain add po dilaudid - Zofran prn for nausea - ff CBC - ENT ff recommends patient's right nasal balloon stay in for a total of 5 days( placed 03/27) as per the amount of oozing that she has had and amount of bleeding she has had. This may be removed by the home team when appropriate by simple deflation and extraction , and after the next 5 days, recommend the patient having ointment in the bilateral nares twice a day for the next 6 weeks at least. - started on Ancef 1 gm IV q 8 - ASA/Plavix DC, resume when cleared by ENT - Hematology/ENT ff along closely with us - start VF - D5NS 50 cc/hr - while NPO. Start clears then advance as tolerated Hypertension- not well controlled 2/2 pain History fo CAD s/p stent 08/2017 - continue home meds- JC 10 mg daily, Lopressor 50 mg po bid - clonidine 0.1 mg po q 6 prn and add IV vasotec - she will have family bring in her card- of what type of stent she has bilateral TEDs/SCDs for DVT prophylaxis Discharge Planning: Transfer to [facility] with improved BP readings
[2018-03-29] MEDS ORDERED: Naloxone Inj 0.4 MG/ML Vial IV.PUSH PRN (10:25)
--- NOTE | 2018-03-29 11:30 | P.PNONC ---
Subjective Interval history: Pt awake and alert. She states she is visiting from [place] and is inquiring when she will be allowed to fly. This deferred to ENT. She does not know if she is still bleeding as she is unable to swallow. Objective Vital Signs/Intake & Output: Vital Signs 03/28/18 12:00 03/28/18 16:00 03/28/18 20:00 Temperature 98.8 F 99.1 F 98.5 F Pulse Rate 78 92 H 100 H Respiratory Rate 20 14 18 Blood Pressure 103/65 151/72 H 134/77 Pulse Oximetry 99 97 03/29/18 00:00 03/29/18 04:00 03/29/18 07:59 Temperature 98.5 F 98.8 F 97.7 F Pulse Rate 72 100 H 94 H Respiratory Rate 15 19 15 Blood Pressure 130/63 175/92 H 130/70 Pulse Oximetry 99 98 Intake & Output 03/28/18 03/29/18 03/29/18 18:59 06:59 18:59 Intake Total 100 / 100 1050 / 1050 50 / 50 Output Total 325 / 325 Balance 100 / 100 725 / 725 50 / 50 Weight 57 kg Intake: IV 100 / 100 1050 / 1050 50 / 50 D5W/Normal Saline Inj 1,000 ML 1000 / 1000 @ 50 mls/hr IV.CONT .Q20H BORIS Rx#:[id number] Ancef 1 GM Premix Inj 1 gm In 100 / 100 50 / 50 50 / 50 50 ml @ 100 mls/hr IV.SIG Q8H BORIS Rx#:[id number] Output: Urine 325 / 325 Other: # Voids 4 # Bowel Movements 0 0 Result Diagrams: 03/28/18 07:49 03/28/18 07:49 Culture Results: Microbiology 03/27/18 13:01 Aerobic Blood Culture - Preliminary Blood - Peripheral No growth in 2 days Anaerobic Blood Culture - Preliminary No growth in 2 days 03/27/18 13:06 Aerobic Blood Culture - Preliminary Blood - Peripheral No growth in 2 days Anaerobic Blood Culture - Preliminary No growth in 2 days Imaging Studies: Impressions Cerebral Angiography 03/28/18 00:00 CONCLUSION: 1. Uncomplicated embolization of the left internal maxillary artery Medications: Active Medications Generic Name Dose Route Start Last Admin Trade Name Freq PRN Reason Stop Dose Admin Clonidine HCl 0.1 mg 03/27/18 16:33 03/29/18 10:22 Catapres PO 0.1 mg Q6H PRN Administration SYS BP GREATER THAN 150 MMHG Cefazolin Sodium/Dextrose 1 gm in 50 mls @ 100 mls/hr 03/28/18 08:00 08:18 Ancef 1 Gm Premix Inj IV.SIG Infused Q8H BORIS Infusion Dextrose/Sodium Chloride 1,000 mls @ 50 mls/hr 03/28/18 09:30 03/29/18 04:35 D5w/Normal Saline Inj IV.CONT 50 mls/hr .Q20H BORIS Administration Lisinopril 10 mg 03/27/18 09:00 03/29/18 08:02 Prinivil PO 10 mg DAILY BORIS Administration Metoprolol Tartrate 50 mg 03/27/18 09:00 03/29/18 08:02 Lopressor PO 50 mg BID BORIS Administration Ondansetron HCl 4 mg 03/27/18 03:18 03/28/18 17:04 Zofran Inj IV.PUSH 4 mg Q6H PRN Administration NAUSEA OR VOMITING Prochlorperazine Edisylate 10 mg 03/28/18 20:23 03/28/18 21:21 Compazine Inj IV.PUSH 10 mg Q6H PRN Administration intractable nausea Senna/Docusate Sodium 1 tab 03/27/18 09:00 03/29/18 08:02 Davida-Colace PO Not Given BID BORIS Sodium Chloride 2 ml 03/27/18 09:00 03/29/18 08:02 Ns Flush IV.FLUSH 2 ml BID BORIS Administration Objective Remarks: GENERAL: Well-nourished, well-developed female patient, in no acute distress. SKIN: Warm and dry. HEAD: Normocephalic. Nasal packing in place. EYES: No scleral icterus. No injection or drainage. MOUTH: Brown tinged mucous posterior throat. NECK: Supple, trachea midline. CARDIOVASCULAR: Regular rate and rhythm without murmurs. RESPIRATORY: Breath sounds equal bilaterally. No accessory muscle use. GASTROINTESTINAL: Abdomen soft, non-tender, nondistended. EXTREMITIES: No cyanosis, or edema. 2 x 2 gauze to right groin dry/intact. MUSCULOSKELETAL: Adequate muscle tone. NEUROLOGICAL: No obvious focal deficit. Awake, alert, and oriented x3. PSYCHIATRIC: Appropriate mood and affect; insight and judgment normal. Assessment/Plan - Plan Ms. Huff is a pleasant 58-year-old female patient with a history of coronary stent placement in August 2017, she was on aspirin and Plavix when she developed epistaxis. Hematology was consulted for acute epistaxis while on antiplatelet agents. Recommendations: 1. Epistaxis, s/p left maxillary embolization yesterday. 2. Coronary artery disease with stent placement August 2017, will defer to cardiology for timing on when to resume antiplatelet therapy. 3. Status post 1 unit platelets and 1 dose of Amicar on 03/27/18, continue to monitor CBC. 4. No bleeding noted on exam. 5. Continue to monitor for bleeding. - Attending Statement The exam, history, and the medical decision-making described in the above note were completed with the assistance of the mid-level provider. I reviewed and agree with the findings presented. I attest that I had a [id number] encounter with the patient on the same day, and personally performed and documented my assessment and findings in the medical record. Patient status post embolization. The bleeding appeared to have stopped. She still has mild nausea. Will check her CBC tomorrow. Continue supportive care.
[2018-03-29] MEDS: Gabapentin 400 MG Capsule PO SCH (21:00)
[2018-03-30 04:39] LABS: Baso % (Auto) 0.4 % (0.0-2.0); Eos # (Auto) 0.1 th/mm3 (0.0-0.4); Eos % (Auto) 1.5 % (0.0-4.0); Hematocrit 26.8 % (35.0-46.0); Hemoglobin 9.3 gm/dL (11.6-15.3); Lymph # (Auto) 0.9 th/mm3 (1.0-4.8); Lymph % (Auto) 23.7 % (9.0-44.0); Mean Corpuscular HGB Conc 34.6 % (32.0-36.0); Mean Corpuscular Hemoglobin 32.1 pg (27.0-34.0); Mean Corpuscular Volume 92.7 fL (80.0-100.0); Mean Platelet Volume 7.5 fL (7.0-11.0); Mono # (Auto) 0.4 th/mm3 (0.0-0.9); Mono % (Auto) 10.1 % (0.0-8.0); Neut # (Auto) 2.4 th/mm3 (1.8-7.7); Neut % (Auto) 64.3 % (16.0-70.0); Platelet Count 162 th/mm3 (150-450); Red Blood Count 2.89 mil/mm3 (4.00-5.30); Red Cell Distribution Width 13.7 % (11.6-17.2); White Blood Count 3.8 th/mm3 (4.0-11.0)
[2018-03-30 05:01] LABS: Calcium 8.2 mg/dL (8.5-10.1); Carbon Dioxide 24.8 meq/L (21.0-32.0); Magnesium 1.9 mg/dL (1.5-2.5); Potassium 3.1 meq/L (3.5-5.1)
[2018-03-30] MEDS: Dextrose 5%/NaCl 0.9% Inj 1,000 ML IV.CONT SCH ×2 (05:27→06:49)
[2018-03-30] MEDS: HYDROmorphone PF Inj 0.5 MG/0.5 ML Syringe IV.PUSH PRN ×2 (05:30→11:00)
--- NOTE | 2018-03-30 10:13 | P.PNONC ---
Subjective Interval history: Afebrile, reports sinus pain on the left side, pain when she tries to open her mouth. Patient reports feeling depressed being in the hospital and in a few days is the one year anniversary to her daughter's . She has a history of depression and was on Zoloft 200 mg in the morning prior to this hospitalization. She states she has not had her Zoloft since being hospitalized. We will restart this. Objective Vital Signs/Intake & Output: Vital Signs 03/29/18 12:00 03/29/18 16:00 03/29/18 20:00 Temperature 99.0 F 98.0 F 97.8 F Pulse Rate 83 87 80 Respiratory Rate 16 19 15 Blood Pressure 117/65 125/75 134/62 Pulse Oximetry 99 99 99 03/29/18 22:00 03/30/18 00:00 03/30/18 02:00 Temperature 96.8 F L Pulse Rate 83 71 79 Respiratory Rate 17 Blood Pressure 99/56 L Pulse Oximetry 97 03/30/18 04:00 03/30/18 06:00 Temperature 97.8 F Pulse Rate 71 74 Respiratory Rate 15 Blood Pressure 102/57 L Pulse Oximetry 96 Intake & Output 03/29/18 03/30/18 03/30/18 18:59 06:59 18:59 Intake Total 580 / 580 1170 / 1170 Balance 580 / 580 1170 / 1170 Weight 60 kg Intake: IV 100 / 100 1050 / 1050 D5W/Normal Saline Inj 1,000 ML 1000 / 1000 @ 50 mls/hr IV.CONT .Q20H [facility] Rx#:[id number] Ancef 1 GM Premix Inj 1 gm In 100 / 100 50 / 50 50 ml @ 100 mls/hr IV.SIG Q8H [facility] Rx#:[id number] Oral 480 / 480 120 / 120 Other: # Voids 4 4 # Bowel Movements 0 Result Diagrams: 03/30/18 03:26 03/30/18 05:56 Laboratory Results: Laboratory Results - last 24 hr 03/27/18 03/27/18 03/30/18 13:01 13:03 03:26 WBC 3.8 L RBC 2.89 L Hgb 9.3 L Hct 26.8 L MCV 92.7 MCH 32.1 MCHC 34.6 RDW 13.7 Plt Count 162 MPV 7.5 Neut % (Auto) 64.3 Lymph % (Auto) 23.7 [place] % (Auto) 10.1 H Eos % (Auto) 1.5 Baso % (Auto) 0.4 Neut # (Auto) 2.4 Lymph # (Auto) 0.9 L [place] # (Auto) 0.4 Eos # (Auto) 0.1 Baso # (Auto) 0.0 WBC Differential . Differential Comment Auto diff final Sodium Potassium Chloride Carbon Dioxide Anion Gap BUN Creatinine Estimated GFR POC Glucose Random Glucose Calcium Magnesium MTS Gel Crossmatch See Detail See Detail 03/30/18 03/30/18 03/30/18 03:26 05:23 05:56 WBC RBC Hgb Hct MCV MCH MCHC RDW Plt Count MPV Neut % (Auto) Lymph % (Auto) [place] % (Auto) Eos % (Auto) Baso % (Auto) Neut # (Auto) Lymph # (Auto) [place] # (Auto) Eos # (Auto) Baso # (Auto) WBC Differential Differential Comment Sodium 142 Potassium 3.1 L D Chloride 110 H Carbon Dioxide 24.8 Anion Gap 7 BUN 8 Creatinine 0.71 Estimated GFR 84 L POC Glucose 102 Random Glucose 496 H* D 101 D Calcium 8.2 L D Magnesium 1.9 MTS Gel Crossmatch Culture Results: Microbiology 03/27/18 13:01 Aerobic Blood Culture - Preliminary Blood - Peripheral No growth in 2 days Anaerobic Blood Culture - Preliminary No growth in 2 days 03/27/18 13:06 Aerobic Blood Culture - Preliminary Blood - Peripheral No growth in 2 days Anaerobic Blood Culture - Preliminary No growth in 2 days Medications: Active Medications Generic Name Dose Route Start Last Admin Trade Name Freq PRN Reason Stop Dose Admin Clonidine HCl 0.1 mg 03/27/18 16:33 03/29/18 23:25 Catapres PO 0.1 mg Q6H PRN Administration SYS BP GREATER THAN 150 MMHG Cyclobenzaprine HCl 10 mg 03/29/18 21:00 03/29/18 21:00 Flexeril PO 10 mg HS [facility] Administration Gabapentin 1,200 mg 03/29/18 21:00 03/29/18 21:00 Neurontin PO 1,200 mg HS [facility] Administration Hydromorphone HCl 0.5 mg 03/28/18 09:11 03/30/18 05:30 Dilaudid Pf Inj IV.PUSH 0.5 mg Q4H PRN Administration BREAKTHROUGH PAIN Cefazolin Sodium/Dextrose 1 gm in 50 mls @ 100 mls/hr 03/28/18 08:00 00:36 Ancef 1 Gm Premix Inj IV.SIG Infused Q8H [facility] Infusion Dextrose/Sodium Chloride 1,000 mls @ 50 mls/hr 03/28/18 09:30 03/30/18 06:49 D5w/Normal Saline Inj IV.CONT 50 mls/hr .Q20H [facility] Administration Lisinopril 10 mg 03/27/18 09:00 03/29/18 08:02 Prinivil PO 10 mg DAILY [facility] Administration Metoprolol Tartrate 50 mg 03/27/18 09:00 03/29/18 21:00 Lopressor PO 50 mg BID [facility] Administration Ondansetron HCl 4 mg 03/27/18 03:18 03/30/18 05:30 Zofran Inj IV.PUSH 4 mg Q6H PRN Administration NAUSEA OR VOMITING Prochlorperazine Edisylate 10 mg 03/28/18 20:23 03/28/18 21:21 Compazine Inj IV.PUSH 10 mg Q6H PRN Administration intractable nausea Senna/Docusate Sodium 1 tab 03/27/18 09:00 03/29/18 21:00 Davida-Colace PO Not Given BID [facility] Sodium Chloride 2 ml 03/27/18 09:00 03/29/18 21:00 Ns Flush IV.FLUSH 2 ml BID [facility] Administration Objective Remarks: GENERAL: Well-nourished, well-developed female patient, in no acute distress. SKIN: Warm and dry. HEAD: Normocephalic. Nasal packing in place. EYES: No scleral icterus. No injection or drainage. MOUTH: [place] moist mucous membranes. No bleeding noted. NECK: Supple, trachea midline. CARDIOVASCULAR: Regular rate and rhythm without murmurs. RESPIRATORY: Breath sounds equal bilaterally. No accessory muscle use. GASTROINTESTINAL: Abdomen soft, non-tender, nondistended. EXTREMITIES: No cyanosis, or edema. MUSCULOSKELETAL: Adequate muscle tone. NEUROLOGICAL: No obvious focal deficit. Awake, alert, and oriented x3. PSYCHIATRIC: Appropriate mood and affect; insight and judgment normal. Assessment/Plan - Plan Ms. Huff is a pleasant 58-year-old female patient with a history of coronary stent placement in August 2017, she was on aspirin and Plavix when she developed epistaxis. Hematology was consulted for acute epistaxis while on antiplatelet agents. Recommendations: 1. Epistaxis, s/p left maxillary embolization on 03/28/2018. 2. Coronary artery disease with stent placement August 2017, will defer to cardiology for timing on when to resume antiplatelet therapy. 3. Status post 1 unit platelets and 1 dose of Amicar on 03/27/18, hemoglobin decreased to 9.3 today. No transfusion warranted at this time and we will continue to monitor. 4. Restart Zoloft 200 mg. 5. Repeat CBC in the a.m. - Attending Statement The exam, history, and the medical decision-making described in the above note were completed with the assistance of the mid-level provider. I reviewed and agree with the findings presented. I attest that I had a [id number] encounter with the patient on the same day, and personally performed and documented my assessment and findings in the medical record. Patient denies any more bleeding. She still has nausea but controlled. Hemoglobin trended up to 9.3. Continue to monitor CBC. She eventually is going to need antiplatelet agent but will leave that for cardiology to decide.
[2018-03-30] MEDS: Lisinopril 10 MG Tablet PO SCH (10:40)
[2018-03-30] MEDS: Metoprolol Tartrate 50 MG Tablet PO SCH ×2 (10:40→20:11)
[2018-03-30] MEDS: ceFAZolin 1 GM Premix Inj 1 GM/50 ML PIGGYBACK IV.SIG SCH ×3 (10:40→23:35)
[2018-03-30] MEDS: LINACLOTIDE 290 MCG PO SCH (10:41)
[2018-03-30] MEDS: [UNRECOGNIZED DRUG - OTHER] PO SCH (10:41)
[2018-03-30] MEDS: Senna/Docusate Sodium 8.6/50 MG Tablet PO SCH ×2 (10:41→20:11)
[2018-03-30] MEDS: Sertraline 100 MG Tablet PO SCH (10:41)
--- NOTE | 2018-03-30 11:33 | P.PN ---
Subjective Interval history: Follow-up recurrent epistaxis March 30, 2018-patient seen and examined, stable this a.m., no significant head pain. Afebrile. BP improved. Physical Exam Vital signs: Vital Signs 03/29/18 12:00 03/29/18 16:00 03/29/18 20:00 Temperature 99.0 F 98.0 F 97.8 F Pulse Rate 83 87 80 Respiratory Rate 16 19 15 Blood Pressure 117/65 125/75 134/62 Pulse Oximetry 99 99 99 03/29/18 22:00 03/30/18 00:00 03/30/18 02:00 Temperature 96.8 F L Pulse Rate 83 71 79 Respiratory Rate 17 Blood Pressure 99/56 L Pulse Oximetry 97 03/30/18 04:00 03/30/18 06:00 Temperature 97.8 F Pulse Rate 71 74 Respiratory Rate 15 Blood Pressure 102/57 L Pulse Oximetry 96 Intake & Output 03/29/18 03/30/18 03/30/18 18:59 06:59 18:59 Intake Total 580 / 580 1170 / 1170 50 / 50 Balance 580 / 580 1170 / 1170 50 / 50 Weight 60 kg Intake: IV 100 / 100 1050 / 1050 50 / 50 D5W/Normal Saline Inj 1,000 ML 1000 / 1000 @ 50 mls/hr IV.CONT .Q20H [facility] Rx#:[id number] Ancef 1 GM Premix Inj 1 gm In 100 / 100 50 / 50 50 / 50 50 ml @ 100 mls/hr IV.SIG Q8H [facility] Rx#:[id number] Oral 480 / 480 120 / 120 Other: # Voids 4 4 # Bowel Movements 0 Narrative: GENERAL: NAD SKIN: Warm and dry. HEAD: Atraumatic. Normocephalic. EYES: Pupils equal and round. No scleral icterus. No injection or drainage. ENT: balloon in right nostril and packing in left one. Mucous membranes pink and moist. NECK: Trachea midline. No JVD. CARDIOVASCULAR: Regular rate and rhythm. RESPIRATORY: No accessory muscle use. Clear to auscultation. Breath sounds equal bilaterally. GASTROINTESTINAL: Abdomen soft, non-tender, nondistended. Hepatic and splenic margins not palpable. MUSCULOSKELETAL: Extremities without clubbing, cyanosis, or edema. No obvious deformities. NEUROLOGICAL: Awake and alert. No obvious cranial nerve deficits. Motor grossly within normal limits. Five out of 5 muscle strength in the arms and legs. Normal speech. PSYCHIATRIC: Appropriate mood and affect; insight and judgment normal. Results - Labs CBC & Chem 7: 03/30/18 03:26 03/30/18 05:56 Laboratory Results - last 24 hr 03/27/18 03/27/18 03/30/18 13:01 13:03 03:26 WBC 3.8 L RBC 2.89 L Hgb 9.3 L Hct 26.8 L MCV 92.7 MCH 32.1 MCHC 34.6 RDW 13.7 Plt Count 162 MPV 7.5 Neut % (Auto) 64.3 Lymph % (Auto) 23.7 [place] % (Auto) 10.1 H Eos % (Auto) 1.5 Baso % (Auto) 0.4 Neut # (Auto) 2.4 Lymph # (Auto) 0.9 L [place] # (Auto) 0.4 Eos # (Auto) 0.1 Baso # (Auto) 0.0 WBC Differential . Differential Comment Auto diff final Sodium Potassium Chloride Carbon Dioxide Anion Gap BUN Creatinine Estimated GFR POC Glucose Random Glucose Calcium Magnesium MTS Gel Crossmatch See Detail See Detail 03/30/18 03/30/18 03/30/18 03:26 05:23 05:56 WBC RBC Hgb Hct MCV MCH MCHC RDW Plt Count MPV Neut % (Auto) Lymph % (Auto) [place] % (Auto) Eos % (Auto) Baso % (Auto) Neut # (Auto) Lymph # (Auto) [place] # (Auto) Eos # (Auto) Baso # (Auto) WBC Differential Differential Comment Sodium 142 Potassium 3.1 L D Chloride 110 H Carbon Dioxide 24.8 Anion Gap 7 BUN 8 Creatinine 0.71 Estimated GFR 84 L POC Glucose 102 Random Glucose 496 H* D 101 D Calcium 8.2 L D Magnesium 1.9 MTS Gel Crossmatch Microbiology 03/27/18 13:01 Blood - Peripheral Aerobic Blood Culture - Preliminary No growth in 3 days 03/27/18 13:01 Blood - Peripheral Anaerobic Blood Culture - Preliminary No growth in 3 days 03/27/18 13:06 Blood - Peripheral Aerobic Blood Culture - Preliminary No growth in 3 days 03/27/18 13:06 Blood - Peripheral Anaerobic Blood Culture - Preliminary No growth in 3 days - Procedures right nasal balloon Left internal maxillary artery embolization Assessment and Plan - Assessment (1) Epistaxis Code(s): R04.0 - Epistaxis Status: Acute (2) HTN (hypertension) Code(s): I10 - Essential (primary) hypertension Status: Acute (3) Tobacco abuse Code(s): Z72.0 - Tobacco use Status: Acute - Plan 58 years old transferred from [place] with CAD s/p stent 08/2017 Persistent Bilateral epistaxis S/P rhino rhocket Tx from [facility] for acute onset of epistaxis w/ recurrence, on ASA/Plavix for h/o stent placement - S/P 1 pack platelet and IV amicar 03/27 - Status post left internal maxillary artery embolization -Pain management accordingly - ENT ff recommends patient's right nasal balloon stay in for a total of 5 days( placed 03/27) as per the amount of oozing that she has had and amount of bleeding she has had. This may be removed by the home team when appropriate by simple deflation and extraction , and after the next 5 days, recommend the patient having ointment in the bilateral nares twice a day for the next 6 weeks at least. - started on Ancef 1 gm IV q 8 - ASA/Plavix DC, resume when cleared by ENT - Hematology/ENT ff along closely with us - d/c IVF hydration -Monitor CBC Hypertension- History fo CAD s/p stent 08/2017 - continue home meds- JC 10 mg daily, Lopressor 50 mg po bid - clonidine 0.1 mg po q 6 prn and IV vasotec bilateral TEDs/SCDs for DVT prophylaxis Transfer to [facility]
[2018-03-30] MEDS: Acetaminophen 325 MG Tablet PO PRN (18:09)
[2018-03-30] MEDS: Gabapentin 400 MG Capsule PO SCH (20:11)
[2018-03-31] MEDS: Acetaminophen 325 MG Tablet PO PRN (04:06)
[2018-03-31 06:31] LABS: Baso % (Auto) 0.7 % (0.0-2.0); Eos # (Auto) 0.1 th/mm3 (0.0-0.4); Eos % (Auto) 1.6 % (0.0-4.0); Hematocrit 32.7 % (35.0-46.0); Hemoglobin 11.1 gm/dL (11.6-15.3); Mean Corpuscular HGB Conc 34.1 % (32.0-36.0); Mean Corpuscular Hemoglobin 31.2 pg (27.0-34.0); Mean Corpuscular Volume 91.5 fL (80.0-100.0); Mean Platelet Volume 7.6 fL (7.0-11.0); Mono # (Auto) 0.5 th/mm3 (0.0-0.9); Mono % (Auto) 8.2 % (0.0-8.0); Neut # (Auto) 3.9 th/mm3 (1.8-7.7); Neut % (Auto) 70.5 % (16.0-70.0); Platelet Count 217 th/mm3 (150-450); Red Blood Count 3.58 mil/mm3 (4.00-5.30); Red Cell Distribution Width 13.9 % (11.6-17.2); White Blood Count 5.5 th/mm3 (4.0-11.0)
--- NOTE | 2018-03-31 07:37 | P.PNONC ---
Subjective Interval history: Patient is feeling better. She has been transferred out of ICU. She denies any bleeding. She has no nausea. She is wondering when will her packing be removed. She has no chest pain or palpitation. She has no shortness of breath or cough. Objective Vital Signs/Intake & Output: Vital Signs 03/30/18 08:00 03/30/18 09:00 03/30/18 10:00 Temperature 98.2 F Pulse Rate 86 77 83 Respiratory Rate 30 H 15 14 Blood Pressure 134/76 122/77 135/65 Pulse Oximetry 100 100 99 03/30/18 11:00 03/30/18 11:01 03/30/18 12:00 Temperature 97.9 F Pulse Rate 87 91 H 72 Respiratory Rate 21 17 16 Blood Pressure 157/73 H 118/66 Pulse Oximetry 100 99 98 03/30/18 13:00 03/30/18 14:00 03/30/18 15:00 Temperature Pulse Rate 82 79 76 Respiratory Rate 22 19 15 Blood Pressure 114/87 135/80 118/66 Pulse Oximetry 98 99 98 03/30/18 16:00 03/30/18 17:00 03/30/18 18:00 Temperature 98.3 F Pulse Rate 83 72 76 Respiratory Rate 23 15 16 Blood Pressure 111/70 122/58 L 135/74 Pulse Oximetry 94 L 97 98 03/30/18 18:30 03/30/18 19:00 03/30/18 19:01 Temperature Pulse Rate 99 H 100 H Respiratory Rate 15 36 H 29 H Blood Pressure 113/85 Pulse Oximetry 97 95 03/30/18 20:00 03/30/18 21:39 03/30/18 23:25 Temperature 97.3 F L 97.5 F L Pulse Rate 80 87 77 Respiratory Rate 19 18 18 Blood Pressure 143/84 H 132/91 H 142/72 H Pulse Oximetry 97 95 96 Intake & Output 03/30/18 03/31/18 03/31/18 18:59 06:59 18:59 Intake Total 709 / 709 410 / 410 Balance 709 / 709 410 / 410 Weight 60 kg Intake: IV 229 / 229 50 / 50 D5W/Normal Saline Inj 1,000 ML 129 / 129 @ 50 mls/hr IV.CONT .Q20H [facility] Rx#:[id number] Ancef 1 GM Premix Inj 1 gm In 100 / 100 50 / 50 50 ml @ 100 mls/hr IV.SIG Q8H [facility] Rx#:[id number] Oral 480 / 480 360 / 360 Other: # Voids 5 4 Date of Last Bowel Movement 03/27/18 # Bowel Movements 0 0 Result Diagrams: 03/31/18 04:56 03/30/18 05:56 Laboratory Results: Laboratory Results - last 24 hr 03/27/18 03/27/18 03/31/18 13:01 13:03 04:56 WBC 5.5 RBC 3.58 L Hgb 11.1 L Hct 32.7 L MCV 91.5 MCH 31.2 MCHC 34.1 RDW 13.9 Plt Count 217 D MPV 7.6 Neut % (Auto) 70.5 H Lymph % (Auto) 19.0 [place] % (Auto) 8.2 H Eos % (Auto) 1.6 Baso % (Auto) 0.7 Neut # (Auto) 3.9 Lymph # (Auto) 1.0 [place] # (Auto) 0.5 Eos # (Auto) 0.1 Baso # (Auto) 0.0 WBC Differential . Differential Comment Auto diff final MTS Gel Crossmatch See Detail See Detail Culture Results: Microbiology 03/27/18 13:01 Aerobic Blood Culture - Preliminary Blood - Peripheral No growth in 3 days Anaerobic Blood Culture - Preliminary No growth in 3 days 03/27/18 13:06 Aerobic Blood Culture - Preliminary Blood - Peripheral No growth in 3 days Anaerobic Blood Culture - Preliminary No growth in 3 days Medications: Active Medications Generic Name Dose Route Start Last Admin Trade Name Freq PRN Reason Stop Dose Admin Acetaminophen 650 mg 03/29/18 10:25 03/31/18 04:06 Tylenol PO 650 mg Q6HR PRN Administration PAIN SCALE 1 TO 2 Clonidine HCl 0.1 mg 03/27/18 16:33 03/29/18 23:25 Catapres PO 0.1 mg Q6H PRN Administration SYS BP GREATER THAN 150 MMHG Cyclobenzaprine HCl 10 mg 03/29/18 21:00 03/30/18 20:11 Flexeril PO 10 mg HS B[facility] Administration Gabapentin 1,200 mg 03/29/18 21:00 03/30/18 20:11 Neurontin PO 1,200 mg HS [facility] Administration Hydromorphone HCl 0.5 mg 03/28/18 09:11 03/30/18 11:00 Dilaudid Pf Inj IV.PUSH 0.5 mg Q4H PRN Administration BREAKTHROUGH PAIN Cefazolin Sodium/Dextrose 1 gm in 50 mls @ 100 mls/hr 03/28/18 08:00 00:15 Ancef 1 Gm Premix Inj IV.SIG Infused Q8H [facility] Infusion Lisinopril 10 mg 03/27/18 09:00 03/30/18 10:40 Prinivil PO 10 mg DAILY [facility] Administration Metoprolol Tartrate 50 mg 03/27/18 09:00 03/30/18 20:11 Lopressor PO 50 mg BID [facility] Administration Ondansetron HCl 4 mg 03/27/18 03:18 03/30/18 10:59 Zofran Inj IV.PUSH 4 mg Q6H PRN Administration NAUSEA OR VOMITING Ptownmed ( 0 each 03/30/18 09:00 03/30/18 10:41 Linaclotide [Linzess PO Not Given ] 290 Mcg) DAILY [facility] Prochlorperazine Edisylate 10 mg 03/28/18 20:23 03/30/18 13:22 Compazine Inj IV.PUSH 10 mg Q6H PRN Administration intractable nausea Senna/Docusate Sodium 1 tab 03/27/18 09:00 03/30/18 20:11 Davida-Colace PO Not Given BID BORIS Sertraline HCl 200 mg 03/30/18 09:00 03/30/18 10:41 Zoloft PO 200 mg DAILY [facility] Administration Sodium Chloride 2 ml 03/27/18 09:00 03/30/18 20:12 Ns Flush IV.FLUSH 2 ml BID [facility] Administration Objective Remarks: GENERAL: Well-nourished, well-developed patient. SKIN: Warm and dry. HEAD: Normocephalic. Nostril packing in place. No obvious bleeding noted. EYES: No scleral icterus. No injection or drainage. NECK: Supple, trachea midline. No JVD or lymphadenopathy. LYMPHATIC: No adenopathy. CARDIOVASCULAR: Regular rate and rhythm without murmurs. RESPIRATORY: Breath sounds equal bilaterally. No accessory muscle use. GASTROINTESTINAL: Abdomen soft, non-tender, nondistended. EXTREMITIES: No cyanosis, or edema. MUSCULOSKELETAL: Adequate muscle tone. NEUROLOGICAL: No obvious focal deficit. Awake, alert, and oriented x3. PSYCHIATRIC: Appropriate mood and affect; insight and judgment normal. Assessment/Plan - Plan Ms. Huff is a pleasant 58-year-old female patient with a history of coronary stent placement in August 2017, she was on aspirin and Plavix when she developed epistaxis. Hematology was consulted for acute epistaxis while on antiplatelet agents. Recommendations: 1. Epistaxis, s/p left maxillary embolization on 03/28/2018. The bleeding appeared to have stopped. The packing is still in place. ENT to decide when to remove the packing. 2. Coronary artery disease with stent placement August 2017, will defer to cardiology and ENT for timing on when to resume antiplatelet therapy. 3. Status post 1 unit platelets and 1 dose of Amicar on 03/27/18. Hemoglobin trended down to 9.3 but trended back up to 11.1 today. No transfusion warranted at this time. 4. Monitor CBC. 5. No other hematology recommendation at this time. I will sign off and please call if there is any other issue arises.
[2018-03-31] MEDS: Lisinopril 10 MG Tablet PO SCH (10:04)
[2018-03-31] MEDS: Sertraline 100 MG Tablet PO SCH (10:04)
[2018-03-31] MEDS: ceFAZolin 1 GM Premix Inj 1 GM/50 ML PIGGYBACK IV.SIG SCH ×3 (10:06→23:41)
[2018-03-31] MEDS: Metoprolol Tartrate 50 MG Tablet PO SCH ×2 (10:06→20:31)
[2018-03-31] MEDS: Senna/Docusate Sodium 8.6/50 MG Tablet PO SCH ×2 (10:07→20:31)
[2018-03-31] MEDS: LINACLOTIDE 290 MCG PO SCH (10:07)
[2018-03-31] MEDS: [UNRECOGNIZED DRUG - OTHER] PO SCH (10:07)
[2018-03-31 10:40] LABS: Calcium 9.6 mg/dL (8.5-10.1); Carbon Dioxide 29.1 meq/L (21.0-32.0); Potassium 3.7 meq/L (3.5-5.1)
--- NOTE | 2018-03-31 11:02 | P.PNIM ---
Subjective Interval history: Follow up recurrent epistaxis Patient seen and examined while resting in bed. She verbalizes discomfort secondary to inflated balloon in right nostril and dressing underneath nose. She states she has been experiencing left jaw pain ever since the packing was inserted. Patient has difficulty eating as she feels like she can't breathe due to her nose. She denies any further episodes of bleeding. No nausea or vomiting. Physical Exam Vital signs: Last Vital Signs Temp 97.5 F L 03/31/18 08:00 Pulse 99 H 03/31/18 08:00 Resp 17 03/31/18 08:00 BP 133/88 03/31/18 08:00 Pulse Ox 96 03/31/18 08:00 Intake & Output 03/29/18 03/30/18 03/31/18 04/01/18 06:59 06:59 06:59 06:59 Intake Total 1150 / 1150 1750 / 1750 1119 / 1119 Output Total 325 / 325 Balance 825 / 825 1750 / 1750 1119 / 1119 Weight 57 kg 60 kg 60 kg Narrative: GENERAL: NAD SKIN: Warm and dry. HEAD: Atraumatic. Normocephalic. EYES: Pupils equal and round. No scleral icterus. No injection or drainage. ENT: balloon in right nostril and packing in left one. Mucous membranes pink and moist. NECK: Trachea midline. No JVD. CARDIOVASCULAR: Regular rate and rhythm. RESPIRATORY: No accessory muscle use. Clear to auscultation. Breath sounds equal bilaterally. GASTROINTESTINAL: Abdomen soft, non-tender, nondistended. Hepatic and splenic margins not palpable. MUSCULOSKELETAL: Extremities without clubbing, cyanosis, or edema. No obvious deformities. NEUROLOGICAL: Awake and alert. No obvious cranial nerve deficits. Motor grossly within normal limits. Five out of 5 muscle strength in the arms and legs. Normal speech. PSYCHIATRIC: Appropriate mood and affect; insight and judgment normal. Results Labs CBC & Chem 7: 03/31/18 04:56 03/31/18 09:46 Labs: Microbiology 03/27/18 13:01 Blood - Peripheral Aerobic Blood Culture - Preliminary No growth in 3 days 03/27/18 13:01 Blood - Peripheral Anaerobic Blood Culture - Preliminary No growth in 3 days 03/27/18 13:06 Blood - Peripheral Aerobic Blood Culture - Preliminary No growth in 3 days 03/27/18 13:06 Blood - Peripheral Anaerobic Blood Culture - Preliminary No growth in 3 days Procedures Procedures: right nasal balloon Left internal maxillary artery embolization Assessment and Plan Plan 58 years old transferred from [place] with CAD s/p stent 08/2017 Persistent bilateral epistaxis s/p left maxillary embolization 03/28/18 Tx from [facility] for acute onset of epistaxis w/ recurrence, on ASA/Plavix for h/o stent placement since August 2017 -S/P 1 pack platelet and IV amicar 03/27 -pain meds PRN -rhino rocket 03/27/18 and subsequently removed. Graduwayberger NasoPore dissolvable dressing was coated throughout the entire left nasal cavity and nasopharynx 03/27/18. This will resolve in 5 days. -ENT recommends patient's right nasal balloon stay in for a total of 5 days ( placed 03/27) as per the amount of oozing that she has had and amount of bleeding she has had. This may be removed by the home team when appropriate by simple deflation and extraction, and after the next 5 days, recommend the patient having ointment in the bilateral nares twice a day for the next 6 weeks at least. -started on Ancef 1 gm IV q 8 -ASA/Plavix DC, resume when cleared by ENT -Hematology/ENT signed off -Monitor CBC Anemia, likely 2/2 acute blood loss due to epistaxis - evaluated 03/31/18, stable -s/p 1 unit of platelets and 1 dose of Amicar 03/27/18 Hypertension - evaluated 03/31/18, stable History fo CAD s/p stent 08/2017 -continue home meds- JC 10 mg daily, Lopressor 50 mg po bid -clonidine 0.1 mg po q 6 prn and IV vasotec Coronary artery disease with stent placement August 2017 -hold ASA and Plavix, resume once cleared by ENT MDM: self Code: Full GI ppx: PO intake DVT ppx: bilateral TEDs/SCDs for DVT prophylaxis Discussed Condition With: RN, patient Progress Note: Quality VTE Deep Vein Thrombosis/Pulmonary Embolism Present on Admission: No
[2018-03-31] MEDS ORDERED: Mupirocin 2% Nasal Oint Topical Syringe NASAL ONE (11:12)
[2018-03-31] MEDS: Gabapentin 400 MG Capsule PO SCH (20:31)
[2018-03-31] MEDS: Mupirocin 2% Nasal Oint Topical Syringe NASAL SCH (22:23)
[2018-04-01] MEDS: Senna/Docusate Sodium 8.6/50 MG Tablet PO SCH ×2 (08:34→19:40)
[2018-04-01] MEDS: Lisinopril 10 MG Tablet PO SCH (08:34)
[2018-04-01] MEDS: Metoprolol Tartrate 50 MG Tablet PO SCH ×2 (08:34→19:41)
[2018-04-01] MEDS: Sertraline 100 MG Tablet PO SCH (08:35)
[2018-04-01] MEDS: ceFAZolin 1 GM Premix Inj 1 GM/50 ML PIGGYBACK IV.SIG SCH (08:37)
[2018-04-01] MEDS: Mupirocin 2% Nasal Oint Topical Syringe NASAL SCH (08:37)
[2018-04-01] MEDS: LINACLOTIDE 290 MCG PO SCH (08:38)
[2018-04-01] MEDS: [UNRECOGNIZED DRUG - OTHER] PO SCH (08:38)
[2018-04-01] MEDS: Acetaminophen 325 MG Tablet PO PRN ×2 (10:21→19:39)
--- NOTE | 2018-04-01 13:42 | P.PNIM ---
Subjective Interval history: Follow up recurrent epistaxis Patient is sitting on the side of the bed. Her friend/family member is visiting at bedside. Nasal packing to right nostril removed. No bleeding. Patient educated not to blow her nose and to sneeze with mouth open. Patient reports left sided jaw pain ever since nasal packing was placed. She states she is unable to open her mouth fully. No other needs voiced at this time. Physical Exam Vital signs: Last Vital Signs Temp 98.6 F 04/01/18 11:50 Pulse 98 H 04/01/18 11:50 Resp 18 04/01/18 11:50 BP 104/63 04/01/18 11:50 Pulse Ox 98 04/01/18 11:50 Intake & Output 03/30/18 03/31/18 04/01/18 04/02/18 06:59 06:59 06:59 06:59 Intake Total 1750 / 1750 1119 / 1119 750 / 750 50 / 50 Balance 1750 / 1750 1119 / 1119 750 / 750 50 / 50 Weight 60 kg 60 kg 63.1 kg Narrative: GENERAL: NAD SKIN: warm and dry. HEAD: Atraumatic. Normocephalic. EYES: Pupils equal and round. No scleral icterus. No injection or drainage. ENT: Dry crusted blood noted to nostril, packing removed NECK: Trachea midline. No JVD. CARDIOVASCULAR: Regular rate and rhythm. RESPIRATORY: No accessory muscle use. Clear to auscultation. Breath sounds equal bilaterally. GASTROINTESTINAL: Abdomen soft, non-tender, nondistended. Hepatic and splenic margins not palpable. MUSCULOSKELETAL: Extremities without clubbing, cyanosis, or edema. No obvious deformities. NEUROLOGICAL: Awake and alert. No obvious cranial nerve deficits. Motor grossly within normal limits. Five out of 5 muscle strength in the arms and legs. Normal speech. PSYCHIATRIC: Appropriate mood and affect; insight and judgment normal. Results Labs CBC & Chem 7: 03/31/18 04:56 03/31/18 09:46 Labs: Microbiology 03/27/18 13:01 Blood - Peripheral Aerobic Blood Culture - Final No growth in 5 days 03/27/18 13:01 Blood - Peripheral Anaerobic Blood Culture - Final No growth in 5 days 03/27/18 13:06 Blood - Peripheral Aerobic Blood Culture - Final No growth in 5 days 03/27/18 13:06 Blood - Peripheral Anaerobic Blood Culture - Final No growth in 5 days Procedures Procedures: right nasal balloon Left internal maxillary artery embolization Assessment and Plan Plan 58 years old transferred from [place] with CAD s/p stent 08/2017 Persistent bilateral epistaxis s/p left maxillary embolization 03/28/18 - evaluated 04/01/18 Tx from [facility] for acute onset of epistaxis w/ recurrence, on ASA/Plavix for h/o stent placement since August 2017 -S/P 1 pack platelet and IV amicar 03/27 -pain meds PRN -rhino rocket 03/27/18 and subsequently removed. See[employer] NasoPore dissolvable dressing was coated throughout the entire left nasal cavity and nasopharynx 03/27/18. This will resolve in 5 days. -ENT recommends patient's right nasal balloon stay in for a total of 5 days ( placed 03/27) as per the amount of oozing that she has had and amount of bleeding she has had. This was removed by the home team by simple deflation and extraction 04/01/18. No bleeding noted s/p removal. -mupirocin ointment bilateral nares twice a day for the next 6 weeks (start 04/01) -Ancef 1 gm IV q [address], discontinued 04/01/18 s/p removal of packing -ASA/Plavix DC, resume when cleared by ENT -Hematology/ENT signed off -Monitor CBC overnight Anemia, likely 2/2 acute blood loss due to epistaxis - evaluated 04/01/18, stable -s/p 1 unit of platelets and 1 dose of Amicar 03/27/18 -repeat CBC in am Hypertension - evaluated 04/01/18, stable History fo CAD s/p stent 08/2017 -continue home meds- JC 10 mg daily, Lopressor 50 mg po bid -clonidine 0.1 mg po q 6 prn and IV vasotec Coronary artery disease with stent placement August 2017 -hold ASA and Plavix, resume once cleared by ENT MDM: self Code: Full GI ppx: PO intake DVT ppx: bilateral TEDs/SCDs for DVT prophylaxis Progress Note: Quality VTE Deep Vein Thrombosis/Pulmonary Embolism Present on Admission: No
[2018-04-01] MEDS: Gabapentin 400 MG Capsule PO SCH (19:39)
[2018-04-02] MEDS: Acetaminophen 325 MG Tablet PO PRN (02:35)
[2018-04-02] MEDS: Gabapentin 400 MG Capsule PO SCH (02:38)
[2018-04-02] MEDS: Metoprolol Tartrate 50 MG Tablet PO SCH ×2 (02:38→08:31)
[2018-04-02] MEDS: Mupirocin 2% Nasal Oint Topical Syringe EACH NARE SCH ×2 (02:38→08:38)
[2018-04-02] MEDS: Senna/Docusate Sodium 8.6/50 MG Tablet PO SCH ×2 (02:39→08:33)
[2018-04-02] MEDS: Lisinopril 10 MG Tablet PO SCH (08:31)
[2018-04-02] MEDS: Sertraline 100 MG Tablet PO SCH (08:31)
[2018-04-02] MEDS: [UNRECOGNIZED DRUG - OTHER] PO SCH (08:38)
[2018-04-02] MEDS: LINACLOTIDE 290 MCG PO SCH (08:38)
[2018-04-02 10:02] LABS: Baso % (Auto) 0.5 % (0.0-2.0); Eos # (Auto) 0.1 th/mm3 (0.0-0.4); Eos % (Auto) 1.7 % (0.0-4.0); Hematocrit 36.7 % (35.0-46.0); Hemoglobin 12.5 gm/dL (11.6-15.3); Lymph % (Auto) 16.4 % (9.0-44.0); Mean Corpuscular HGB Conc 34.1 % (32.0-36.0); Mean Corpuscular Hemoglobin 31.5 pg (27.0-34.0); Mean Corpuscular Volume 92.4 fL (80.0-100.0); Mean Platelet Volume 7.2 fL (7.0-11.0); Mono # (Auto) 0.4 th/mm3 (0.0-0.9); Mono % (Auto) 6.6 % (0.0-8.0); Neut # (Auto) 4.3 th/mm3 (1.8-7.7); Neut % (Auto) 74.8 % (16.0-70.0); Platelet Count 252 th/mm3 (150-450); Red Blood Count 3.98 mil/mm3 (4.00-5.30); Red Cell Distribution Width 13.9 % (11.6-17.2); White Blood Count 5.8 th/mm3 (4.0-11.0)
--- NOTE | 2018-04-02 11:58 | P.DS ---
DS: Providers Date of admission: 03/27/18 03:19 Primary care physician: No Primary Care Physician Consults: 03/27/18 03:19 Consult to ENT Routine Consulting Provider: Allan Yarbrough Preferred Heel Pricker:: Allan Yarbrough Patient known to:: Allan Yarbrough Reason for Consultation: Epistaxis, Tx from [facility] Notified:: Physician Spoke with:: dr yarbrough - spoke on recorded line earlier Date Notified:: 03/27/18 Time Notified:: 04:08 Ordering Provider: TOM 03/27/18 13:07 Consult to Hematology Routine Consulting Provider: Conrado Swain Reason for Consultation: brisk bleeding - bilateral epistaxis- very brisk - s/w stent CAD august 2017 on Plavix + ASA any recommendations- IR consulted for embolization - but states limited with non fucntioning platelet being on Plavis. anyreocmmendation Notified:: Service Spoke with:: ABAD Date Notified:: 03/27/18 Time Notified:: 13:13 Ordering Provider: JONATHAN Anticipated date of discharge: 04/02/18 Brief History from admission: This is a 58-year-old female with a PMH of HTN, CAD s/p Stent and Tobacco Abuse who was transferred from [facility] for candie w/ Dr. Yarbrough for epistaxis. Pt states she has h/o CAD w/ stent placement in August 2017, has been on ASA and Plavix since that time. Today developed acute onset of bilateral epistaxis, EMS called and symptoms subsided, however had recurrent epistaxis several hours later and presented to [facility]. S/p nasal packing bilaterally w/ posterior clot. Dr. Yarbrough consulted and accepted pt in transfer. Records/labs from reviewed, Hgb 11.1, Platelets 186, INR 1.1. BP 165/98, HR 90, O2 sat 97% on RA , Afebrile. Patient update on day of discharge: Patient educated on holding Aspirin and Plavix for a total of 2 weeks and that she may resume meds on 04/11/18. No further episode of nose bleed overnight since balloon removal yesterday. Patient educated on Bactroban to bilateral nostrils for the next 6 weeks. All questions were answered at bedside. DS: Diagnosis Discharge Diagnosis (1) Epistaxis: Status: Acute Diagnosis: Principal (2) HTN (hypertension): Status: Acute Diagnosis: Secondary (3) Tobacco abuse: Status: Acute Diagnosis: Secondary (4) Coronary artery disease: Status: Acute Diagnosis: Secondary (5) Anemia: Status: Acute Diagnosis: Principal (6) TMJ (temporomandibular joint syndrome): Status: Acute DS: Summary Patient was seen in consultation by specialist Dr Yarbrough. A rhino rocket was inserted 03/27/18 and subsequently removed. [employer]ger NasoPore dissolvable dressing was coated throughout the entire left nasal cavity and nasopharynx 03/27. This resolved in 5 days. A right nostril nasal balloon was inserted and stayed in for a total of 5 days (placed 03/27) as per the amount of oozing and bleeding she has had. She received IV Ancef while packing was in place. This was removed by the home team by simple deflation and extraction 04/01/18 and antibiotics were discontinued. No bleeding noted status post removal. Patient was also seen by hematology during her stay. She received 1 unit of platelets and Amicar IV 03/27/18. Patient had no further episode of bleeding status post intervention and her hemoglobin improved. She was deemed stable for discharge by all specialists. Patient was advised to hold her antiplatelets for a total of 2 weeks (resume 04/11/18). She was educated on Bactroban to bilateral nostrils twice daily x 6 weeks. ED precautions were provided for recurrent episode of bleeding. Patient educated not to blow her nose and to sneeze with mouth open. Discussed left sided jaw pain with Dr Infante in am on day of discharge. Likely TMJ and should resolve. Patient advised to follow up with PCP and [facility] post discharge. Time Spent with Patient Total time spent providing and/or coordinating discharge services: Greater than 30 minutes Status at Discharge Functional status at discharge: independent ambulation Overall status at discharge: patient is back to baseline Quality: VTE Deep Vein Thrombosis/Pulmonary Embolism Present on Admission: No Exam Narrative Exam Narrative: GENERAL: no acute distress, well developed, well nourished SKIN: warm and dry, no rash HEAD: Normocephalic, atraumatic EYES: No scleral icterus. No injection or drainage. NECK: Supple, trachea midline. No JVD or lymphadenopathy. CARDIOVASCULAR: Regular rate and rhythm without murmurs, gallops, or rubs. RESPIRATORY: Breath sounds equal bilaterally. No accessory muscle use. GASTROINTESTINAL: Abdomen soft, non-tender, nondistended. MUSCULOSKELETAL: No cyanosis, or edema. Results Procedures completed during hospitalization: right nasal balloon Left internal maxillary artery embolization Labs on day of discharge: Labs from last 24 hours 04/02/18 09:27 WBC 5.8 RBC 3.98 L Hgb 12.5 Hct 36.7 MCV 92.4 MCH 31.5 MCHC 34.1 RDW 13.9 Plt Count 252 MPV 7.2 Neut % (Auto) 74.8 H Lymph % (Auto) 16.4 [place] % (Auto) 6.6 Eos % (Auto) 1.7 Baso % (Auto) 0.5 Neut # (Auto) 4.3 Lymph # (Auto) 1.0 [place] # (Auto) 0.4 Eos # (Auto) 0.1 Baso # (Auto) 0.0 WBC Differential . Differential Comment Auto diff final Impressions ITS Impressions Cerebral Angiography 03/28/18 00:00 CONCLUSION: 1. Uncomplicated embolization of the left internal maxillary artery Discharge Plan Discharge Disposition Patient Disposition: Discharge Home Discharge Condition Condition: Good Discharge Order Discharge Orders: Discharge Order (Routine); Ordered 04/02/18 Ordered By: Michael Guidry Discharge Details Anticipated Discharge Date: 04/02/18 Discharge Comment: Please hold your Aspirin and Plavix for a total of 2 weeks. Ok to resume 04/11/2018 Physicians Team Primary Care Provider: Primary Care Odilia,Isabel Attending Provider: Yael Person Other Providers: Allan Yarbrough ; Conrado Swain Rxs /Orders / Referrals /Forms Prescriptions: New mupirocin calcium [Bactroban Nasal] 2 % Ointment 1 applicatio Intranasal BID Qty: 1 RF: 0 Continue lisinopril 10 mg Tablet 10 mg PO DAILY RF: 0 cyclobenzaprine 10 mg Tablet 10 mg PO HS Qty: 30 RF: 0 gabapentin 600 mg Tablet 1,200 mg PO HS Qty: 30 RF: 0 sertraline 100 mg Tablet 200 mg PO DAILY Qty: 30 RF: 0 clopidogrel 75 mg Tablet 75 mg PO DAILY Qty: 0 RF: 0 metoprolol tartrate 50 mg Tablet 50 mg PO BID Qty: 60 RF: 0 aspirin 81 mg Tablet,Chewable 81 mg PO DAILY Qty: 0 RF: 0 linaclotide [Linzess] 290 mcg Capsule 290 mcg PO DAILY Qty: 30 RF: 0 Referrals: [facility] [Outside] - See Instructions (Please follow up in 2 weeks. ) Family Practice Physician [Outside] - See Instructions (Please follow up in 1 week. ) Primary Care RuiIsabel [Primary Care Provider] - See Instructions Discharge Instructions Patient Printed Instructions: Mupirocin (Into the nose), Nosebleed (GEN) Additional Instructions: Your Health Problems: Goals to Promote Your Health: * To prevent worsening of your condition * To maintain your health at the optimal level Directions to Meet Your Goals: * Take your medications as prescribed * Follow your dietary instruction * Follow activity as directed * Keep your appointments as scheduled * Take your immunizations and boosters as scheduled * If your symptoms worsen call your PCP * If no PCP go to Urgent Care or Emergency Room Smoking is dangerous to your health. Avoid second hand smoke. You may reach the 24-hour crisis hotline for domestic abuse at . Status ED Status: Left Department
== END 2018-04-02 12:51 | disposition home or self-care (01) ==
LOC: NEPE 02:56 → NEDA 03:19 → HCIS 04:44 → HIMC 14:55 → N06 03-30 21:10
PROVIDERS: ADMIT Internal Medicine; ATTEND Internal Medicine
DX: K21.9 Gastro-esophageal reflux disease without esophagitis; Z92.3 Personal history of irradiation; Z79.82 Long term (current) use of aspirin; D62 Acute posthemorrhagic anemia; Z79.02 Long term (current) use of antithrombotics/antiplatelets; Z85.3 Personal history of malignant neoplasm of breast; R04.0 Epistaxis; M26.609 Unspecified temporomandibular joint disorder, unspecified side; M79.7 Fibromyalgia; I10 Essential (primary) hypertension; Z85.038 Personal history of other malignant neoplasm of large intestine; Z90.12 Acquired absence of left breast and nipple; Z95.5 Presence of coronary angioplasty implant and graft; I25.10 Atherosclerotic heart disease of native coronary artery without angina pectoris; F17.210 Nicotine dependence, cigarettes, uncomplicated; F32.9 Major depressive disorder, single episode, unspecified